=== PATIENT | female | born 1970 | race Two or more races ===

== ENCOUNTER → 2024-10-13 | Outpatient (BNVA) | payer MEDICAID, SELFPAY | END | disposition home or self-care (01) | PROVIDERS: PCP Nurse Practitioner Primary Care; Referring Provider Nurse Practitioner Primary Care; Visit Provider Nurse Practitioner Primary Care | DX: Z00.01 Encounter for general adult medical examination with abnormal findings (principal); E11.9 Type 2 diabetes mellitus without complications; D50.0 Iron deficiency anemia secondary to blood loss (chronic) | CPT/HCPCS: 83036; 85018; 99214 ==

== ENCOUNTER → 2024-11-23 | Outpatient (BNVA) | payer MEDICAID, SELFPAY | END | disposition home or self-care (01) | PROVIDERS: PCP Nurse Practitioner Family; Referring Provider Nurse Practitioner Family; Visit Provider Nurse Practitioner Family | DX: E11.9 Type 2 diabetes mellitus without complications (principal) | CPT/HCPCS: 99213 ==

== ENCOUNTER 2024-12-08 12:59 | Emergency (ER) | payer MEDICAID, SELFPAY ==
[2024-12-08 13:30] VITALS: BP 135/79; PULSE 97; RESP 18; TEMP 37.1; O2SAT 96; BMI 31.6
[2024-12-08 13:51] LABS: Basophils % (Auto) 0 % (0-2.5); Eosinophils % (Auto) 0 % (0-10); Hemoglobin 9.5 g/dL (12.0-16.0); Immature Granulocytes % (Auto) 1 % (0-0); Immature Granulocytes Auto 0.11 Thou/mm3 (0.00-0.00); Lymphocytes # (Auto) 1.6 Thou/mm3 (1.0-4.8); Lymphocytes % (Auto) 17 % (10-50); Mean Corpuscular HGB Conc 28.8 g/dl (31.0-37.0); Mean Corpuscular Hemoglobin 22.9 pg (25.0-35.0); Mean Corpuscular Volume 80 fL (80-100); Monocytes # (Auto) 0.7 Thou/mm3 (0.0-0.8); Monocytes % (Auto) 7 % (0-12); Neutrophils # (Auto) 7.1 Thou/mm3 (1.8-7.7); Neutrophils % (Auto) 74 % (37-80); Nucleated Red Blood Cell # 0.07 Thou/mm3 (0.00-0.00); Nucleated Red Blood Cell % 1 /100 WBC (0); Platelet Count 241 Thou/mm3 (140-440); RDW Standard Deviation 48.5 fL (36.4-46.3); Red Blood Count 4.15 Miln/mm3 (4.00-5.20); White Blood Count 9.6 Thou/mm3 (3.6-11.0)
[2024-12-08 14:00] LABS: Glucose Estimated Average 315 mg/dL (80-131); Hemoglobin A1C 12.6 % Hgb (4.8-6.0)
[2024-12-08 14:11] LABS: Alanine Aminotransferase 110 U/L (10-49); Albumin, Serum 4.6 gm/dL (3.5-5.0); Albumin/Globulin Ratio 1.4 (1.2-2.2); Alkaline Phosphatase 241 U/L (46-116); Anion Gap 9 (7-16); Aspartate Amino Transferase 94 U/L (0-34); BUN/Creatinine Ratio 27 Ratio (12-20); Bilirubin,Total 0.5 mg/dL (0.3-1.2); Blood Urea Nitrogen 16 mg/dL (9-23); Calcium 10.2 mg/dL (8.3-10.6); Calcium (Corrected) 10.2 mg/dL (8.5-10.1); Carbon Dioxide 25.6 mMol/L (20.0-31.0); Chloride 102 mMol/L (98-107); Creatinine (Component) 0.6 mg/dL (0.6-1.3); Globulin 3.4 gm/dL (2.3-3.5); Glucose 289 mg/dL (74-106); Osmolality,Calculated 286 (275-295); Potassium 4.3 mMol/L (3.4-5.1); Sodium 137 mMol/L (136-145); eGFR > 60 See Note
--- NOTE | 2024-12-08 14:31 | PD.EDADULT ---
ED General RME/HPI General Chief complaint: General Adult/Misc Complain Stated complaint: hyperglycemia, sent by pcp for labs taken 2 days Time Seen by Provider: 12/08/24 13:23 Arrival date/time: 12/08/24 12:59 54-year-old female with no complaints at this time presents emergency department today stating that she was told that her blood sugar was high after having labs drawn 2 days ago and was instructed to come to the ER for further evaluation Limitations: no limitations Related Data Home Medications ?Medication ?Instructions ?Recorded ?Confirmed ferrous sulfate 325 mg (65 mg 325 mg PO TID 09/15/24 10/13/24 iron) tablet simvastatin 20 mg tablet 20 mg PO QPM 11/23/24 11/23/24 Previous Rx's ?Medication ?Instructions ?Recorded empagliflozin 25 mg tablet 25 mg PO QAM #90 tabs 02/27/24 (Jardiance) blood sugar diagnostic (Contour #50 ea 06/10/24 Next Test Strips) blood sugar diagnostic (True #100 ea 08/13/24 Metrix Glucose Test Strip) rosuvastatin 20 mg tablet 20 mg PO QDAY #90 tabs 08/13/24 glipizide 5 mg tablet 5 mg PO BID #90 tabs 09/15/24 pantoprazole 40 mg tablet,delayed 40 mg PO QDAY #30 tabs 09/15/24 release pen needle, diabetic 31 gauge x #100 ea 11/23/2401/23 (Comfort EZ Pen [place]) semaglutide 0.25 mg or 0.5 mg (2 0.5 mg (0.374 mL) subcut QWEEK 4 12/08/24 mg/1.5 mL) subcutaneous pen weeks #1.496 mL injector Allergies Allergy/AdvReac Type Severity Reaction Status Date / Time No Known Allergies Allergy Verified 12/08/24 13:01 Review of Systems Review of Systems Systems Reviewed: All systems reviewed, normal except as documented Constitutional Constitutional: Reports system reviewed and no additional complaints, except as documented, Denies fever(s) and Denies headache(s) Eyes Eyes: Reports system reviewed and no additional complaints, except as documented and Denies blurry vision ENT Ears, Nose, Mouth, and Throat: Reports system reviewed and no additional complaints, except as documented, Denies headache(s), Denies nasal congestion and Denies nasal discharge Cardiovascular Cardiovascular: Reports system reviewed and no additional complaints, except as documented, Denies chest pain and Denies dyspnea Respiratory Respiratory: Reports system reviewed and no additional complaints, except as documented, Denies chest congestion, Denies cough and Denies dyspnea Gastrointestinal Gastrointestinal: Reports system reviewed and no additional complaints, except as documented and Denies abdominal pain Integumentary/Breasts Skin/Breast: Reports system reviewed and no additional complaints, except as documented and Denies rash Neurologic Neurologic: Reports system reviewed and no additional complaints, except as documented, Reports as per HPI and Denies headache(s) Past Medical History Past Medical History NEUROLOGIC: Negative Neurological Disorders CARDIAC: Negative Cardiac Disorders ED Exam General Limitations: Present no limitations General appearance: Present alert and in no apparent distress Head Head exam: Present atraumatic, normocephalic and normal inspection Eye Eye exam: Present normal appearance, PERRL and EOMI; Absent conjunctival injection ENT ENT exam: Present normal exam, normal oropharynx and mucous membranes moist Neck Neck exam: Present normal inspection, full ROM and trachea midline Chest Chest inspection: Present normal inspection and symmetric chest wall rise Respiratory Respiratory exam: Present normal lung sounds bilaterally; Absent respiratory distress Cardiovascular Cardiovascular exam: Present regular rate, normal rhythm and normal heart sounds Abdominal Exam Abdominal exam: Present soft and normal bowel sounds; Absent distention, tenderness, guarding, rebound or rigidity Extremities Exam Extremities exam: Present normal inspection and full ROM Back Exam Back exam: Present normal inspection and full ROM; Absent tenderness Neurological Exam Neurological exam: Present alert, oriented X3, CN II-XII intact, normal gait and reflexes normal; Absent motor sensory deficit Psychiatric Psychiatric exam: Present normal affect and normal mood Skin Skin exam: Present warm, dry, intact and normal color Course Quality Measures none Orders Category Date Time Status Bedside Blood Glucose NOW Care 12/08/24 13:25 Completed A1C [Glycohemoglobin w (eAG)] Stat Lab 12/08/24 13:37 Completed CBC Stat Lab 12/08/24 13:37 Completed CMP [Comprehensive Metabolic Panel] Stat Lab 12/08/24 13:37 Completed Vital Signs Vital signs: Vital Signs Temperature 98.7 F 12/08/24 13:30 Pulse Rate 97 12/08/24 13:30 Respiratory Rate 18 12/08/24 13:30 Blood Pressure 135/79 H 12/08/24 13:30 Pulse Oximetry (%) 96 12/08/24 13:30 Oxygen Delivery Method Room Air 12/08/24 13:30 O2 saturation 96% room air within normal limits MDM Patient data External records reviewed:: [facility] previous records Clinical information provided by:: patient Social determinants that could affect healthcare access:: none Patient has the following chronic illnesses:: See history How is presenting disease/condition affected by chronic disease/condition?: caused by Evaluation data The following diagnostics were reviewed and interpreted by me:: lab results Lab and/or radiology exams considered but not ordered:: Labs obtained Interpretation Summary: Reviewed by me Medications Medications considered but not ordered:: No meds Medication administrations:: No meds Consultations Consultation(s) initiated? (list below): No Diagnosis Differential Diagnosis ED Complaint MDM: Hyperglycemia, euglycemia, DKA Most likely diagnosis given after review of the tests above:: Hyperglycemia Admission Indicated Admission indicated?: not indicated Explain why admission is indicated or not indicated:: No criteria Admission Request Was there a request for admission?: No Disposition Plan Disposition Plan: Discharge Discharge Attestation Discharge Attestation: The patient and all family members were given an opportunity to ask questions and understood the discharge instructions. Discharge instructions specifically effects, indications for sooner follow up or return to the emergency department, and the expected course of current diagnosis. Patient condition: Stable Medical Decision Making MDM Narrative MDM Narrative: 54-year-old female with no complaints at this time presents emergency department today stating that she was told that her blood sugar was high after having labs drawn 2 days ago and was instructed to come to the ER for further evaluation Lab work obtained patient is average blood sugar 315 with an A1c of 12.6 Patient bedside blood sugar today is actually less than her average blood sugar which is quite high explained to the patient she must follow-up with PCP in order get her blood sugar better controlled also patient was instructed to change her dietary habits which will also significantly improve her blood sugar Patient reports no chest pain or shortness of breath no headache dizziness or weakness therefore patient be discharged home at this time Patient discharged home in no distress to follow-up with primary care doctor in the next 24 to 48 hours and for any worsening symptoms to return to the ER immediately Differential Diagnosis Differential Diagnosis: Hyperglycemia, euglycemia, DKA Medical Records Medical records reviewed: Yes I reviewed the patient's medical records. Lab Data Lab results reviewed: Yes I reviewed the patient's lab results. 12/08/24 13:37 12/08/24 13:37 Labs: Lab Results 12/08/24 Range/Units 13:37 WBC 9.6 (3.6-11.0) Thou/mm3 RBC 4.15 (4.00-5.20) Miln/mm3 Hgb 9.5 L (12.0-16.0) g/dL Hct 33.0 L (36.0-46.0) % MCV 80 (80-100) fL MCH 22.9 L (25.0-35.0) pg MCHC 28.8 L (31.0-37.0) g/dl RDW Std Deviation 48.5 H (36.4-46.3) fL Plt Count 241 (140-440) Thou/mm3 Neut % (Auto) 74 (37-80) % Lymph % (Auto) 17 (10-50) % [place] % (Auto) 7 (0-12) % Eos % (Auto) 0 (0-10) % Baso % (Auto) 0 (0-2.5) % Neut # (Auto) 7.1 (1.8-7.7) Thou/mm3 Lymph # (Auto) 1.6 (1.0-4.8) Thou/mm3 [place] # (Auto) 0.7 (0.0-0.8) Thou/mm3 Eos # (Auto) 0.0 (0.0-0.5) Thou/mm3 Baso # (Auto) 0.0 (0.0-0.2) Thou/mm3 Immature Gran # (Auto) 0.11 H (0.00-0.00) Thou/mm3 Absolute Nucleated RBC 0.07 H (0.00-0.00) Thou/mm3 Immature Gran % 1 H (0-0) % Nucleated RBC % 1 H (0) /100 WBC Sodium 137 (136-145) mMol/L Potassium 4.3 (3.4-5.1) mMol/L Chloride 102 (98-107) mMol/L Carbon Dioxide 25.6 (20.0-31.0) mMol/L Anion Gap 9 (7-16) BUN 16 (9-23) mg/dL Creatinine 0.6 (0.6-1.3) mg/dL Estim Creat Clear Calc 89.0 (>60) mL/min eGFR > 60 (60 - ) See Note BUN/Creatinine Ratio 27 H (12-20) Ratio Glucose 289 H (74-106) mg/dL Estimated Ave Glu mg/dL 315 H (80-131) mg/dL Hemoglobin A1c 12.6 H (4.8-6.0) % Hgb Calculated Osmolality 286 (275-295) Calcium 10.2 (8.3-10.6) mg/dL Corrected Calcium 10.2 H (8.5-10.1) mg/dL Total Bilirubin 0.5 (0.3-1.2) mg/dL AST 94 H (0-34) U/L ALT 110 H (10-49) U/L Alkaline Phosphatase 241 H (46-116) U/L Total Protein 8.0 (5.7-8.2) gm/dL Albumin 4.6 (3.5-5.0) gm/dL Globulin 3.4 (2.3-3.5) gm/dL Albumin/Globulin Ratio 1.4 (1.2-2.2) Discharge Plan Plan Patient Disposition: HOME (Self Care) Disposition Comment: Stable Prescriptions/Referrals Prescriptions/Med Rec: No Action (DME) True Metrix Glucose Test Strip Strip See Rx Instructions .Route Qty: 100 1RF Rx Instructions: As directed rosuvastatin 20 mg tablet 20 mg PO QDAY Qty: 90 1RF ferrous sulfate 325 mg (65 mg iron) tablet 325 mg PO TID glipizide 5 mg tablet 5 mg PO BID Qty: 90 1RF pantoprazole 40 mg tablet,delayed release (DR/EC) 40 mg PO QDAY Qty: 30 2RF semaglutide 0.25 mg or 0.5 mg(2 mg/1.5 mL) pen injector 0.5 mg subcut QWEEK 28 Days Qty: 1.496 0RF Jardiance 25 mg tablet 25 mg PO QAM Qty: 90 1RF (DME) Contour Next Test Strips Strip See Rx Instructions .Route Qty: 50 0RF Rx Instructions: As directed simvastatin 20 mg tablet 20 mg PO QPM (DME) pen needle, diabetic [Comfort EZ Pen [place]] 31 gauge x 3/16 needle See Rx Instructions .Route Qty: 100 3RF Rx Instructions: Qday Problem List Clinical Impression: Poorly controlled diabetes mellitus, Elevated liver enzymes Patient/Caregiver Discharge Instructions Education Materials: Facts About Diabetes Additional Instructions: Please follow up with your primary care doctor in the next 24-48hrs for any worsening symptoms return here immediately Your liver enzymes are elevated I suspect is secondary to NAFLD Your diabetes is poorly controlled your average blood sugars 315 your A1c level is 12.6 Print Language: Amharic Stand Alone Forms: Roseann Award Info., Patient Portal Info Letter PA/SHOE REPAIRER APPRENTICE Supervising Physician PA/SHOE REPAIRER APPRENTICE Supervising Physician: Dr. Diego
== END 2024-12-08 15:52 | disposition home or self-care (01) ==
LOC: SERX 15:05
PROVIDERS: Nurse Practitioner Primary Care; Emergency Provider Emergency Medicine; PCP Nurse Practitioner Primary Care
DX: E11.65 Type 2 diabetes mellitus with hyperglycemia (principal); R74.8 Abnormal levels of other serum enzymes; Z79.85 Long-term (current) use of injectable non-insulin antidiabetic drugs; Z79.84 Long term (current) use of oral hypoglycemic drugs
CPT/HCPCS: 36415; 80053; 83036; 85025; 99283

== ENCOUNTER → 2024-12-08 | Outpatient (BNVA) | payer MEDICAID, SELFPAY | END | disposition home or self-care (01) | PROVIDERS: PCP Nurse Practitioner Primary Care; Referring Provider Nurse Practitioner Primary Care; Visit Provider Nurse Practitioner Primary Care | DX: R73.9 Hyperglycemia, unspecified (principal) | CPT/HCPCS: 81001; 81025; 99215; Q0091 ==

== ENCOUNTER → 2025-01-05 | Outpatient (BNVA) | payer MEDICAID, SELFPAY | END | disposition home or self-care (01) | PROVIDERS: PCP Nurse Practitioner Primary Care; Referring Provider Nurse Practitioner Primary Care; Visit Provider Nurse Practitioner Primary Care | DX: E11.65 Type 2 diabetes mellitus with hyperglycemia (principal); Z71.2 Person consulting for explanation of examination or test findings | CPT/HCPCS: 99213 ==

== ENCOUNTER 2025-01-18 07:20 | Day surgery (SDC) | payer MEDICAID, SELFPAY ==
[2025-01-17 13:54] VITALS: BMI 29.5
[2025-01-18] VITALS (11 sets, daily range): BP systolic 100–135; BP diastolic 65–88; PULSE 75–118; RESP 13–24; TEMP 36.2–36.9; O2SAT 92–100; BMI 29.7
[2025-01-18] MEDS: SODIUM CHLORIDE 0.9% 500 ML 500 ML 20 ML IV (09:58)
[2025-01-18] MEDS: fentaNYL CIT INJ 50 mCg/ML AMP 2ML (ASD USE ONLY) IV (09:58)
[2025-01-18] MEDS: MIDAZOLAM INJ 1 MG/ML VIAL 2 ML (ASD USE ONLY) 2 MG IV (09:58)
[2025-01-18] MEDS: DiphenhydrAMINE INJ 50 MG/ML VIAL 25 MG IV (09:59)
[2025-01-18] MEDS: PANTOPRAZOLE/NS 80MG IV PREMIX 80 MG/100 ML BAG 400 MG IV (10:15)
== END 2025-01-18 12:00 | disposition home or self-care (01) ==
PROVIDERS: Referring Provider Internal Medicine Gastroenterology; Visit Provider Internal Medicine Gastroenterology
PROC: (CPT 43239; principal; 2025-01-18 12:15)
DX: K74.60 Unspecified cirrhosis of liver (principal); K29.70 Gastritis, unspecified, without bleeding; K25.9 Gastric ulcer, unspecified as acute or chronic, without hemorrhage or perforation; I85.10 Secondary esophageal varices without bleeding; K29.50 Unspecified chronic gastritis without bleeding
CPT/HCPCS: 43244; 43239; 81025; A4649; J1200; J2250; J3010; J3490; J7040

== ENCOUNTER → 2025-01-31 | Outpatient (BNVA) | payer MEDICAID, SELFPAY | END | disposition home or self-care (01) | PROVIDERS: PCP Nurse Practitioner Primary Care; Referring Provider Nurse Practitioner Primary Care; Visit Provider Nurse Practitioner Primary Care | DX: E11.65 Type 2 diabetes mellitus with hyperglycemia (principal); K74.60 Unspecified cirrhosis of liver | CPT/HCPCS: 83036; 99214 ==

== ENCOUNTER 2025-02-22 08:40 | Day surgery (SDC) | payer MEDICAID, SELFPAY ==
[2025-02-21 12:50] LABS: HCG Qualitative,Urine Negative
[2025-02-22] VITALS (10 sets, daily range): BP systolic 103–114; BP diastolic 63–72; PULSE 81–91; RESP 14–20; TEMP 36.6–37.1; O2SAT 92–97; BMI 34.1
--- NOTE | 2025-02-22 13:10 | SUR.PHASEII ---
1222: pt arrived to PACU drowsy but arouses to voice, breathing unlabored, report from Wendi MARTINEZ 1245: pt tolerating ice chips without difficulty swallowing or n/v 1310: pt awake, alert, able to follow commands, breathing unlabored, VS stable, discharge instructions given with family member Megan present using telephone lobster man Patricia ID#[id number] questions answered, pt and family member verbalize understanding, pt able to dress self and ambulate with steady gait to bathroom, pt discharged via wheelchair with all belongings and copies of discharge paperwork.
== END 2025-02-22 13:10 | disposition home or self-care (01) ==
PROVIDERS: PCP Nurse Practitioner Primary Care; Referring Provider Internal Medicine Gastroenterology; Visit Provider Internal Medicine Gastroenterology
PROC: 0DJD8ZZ Inspection of Lower Intestinal Tract, Via Natural or Artificial Opening Endoscopic (ICD-10-PCS; CPT 45378; principal; 2025-02-22 12:30)
DX: K64.9 Unspecified hemorrhoids (principal)
CPT/HCPCS: 45378; 81025; A4217; J1200; J2250; J3010

== ENCOUNTER → 2025-03-03 | Outpatient (BNVA) | payer MEDICAID, SELFPAY | END | disposition home or self-care (01) | PROVIDERS: PCP Nurse Practitioner Primary Care; Referring Provider Nurse Practitioner Primary Care; Visit Provider Nurse Practitioner Primary Care | DX: Z12.31 Encounter for screening mammogram for malignant neoplasm of breast (principal); E11.65 Type 2 diabetes mellitus with hyperglycemia; K74.69 Other cirrhosis of liver | CPT/HCPCS: 83036; 99214 ==

== ENCOUNTER → 2025-03-09 | Outpatient (BNVA) | payer MEDICAID, SELFPAY | END | disposition home or self-care (01) | PROVIDERS: PCP Nurse Practitioner Primary Care; Referring Provider Nurse Practitioner Primary Care; Visit Provider Nurse Practitioner Primary Care | DX: D64.9 Anemia, unspecified (principal); K74.69 Other cirrhosis of liver; K76.0 Fatty (change of) liver, not elsewhere classified | CPT/HCPCS: 99212; G0463 ==

== ENCOUNTER → 2025-03-22 | Outpatient (BNVA) | payer MEDICAID, SELFPAY | END | disposition home or self-care (01) | PROVIDERS: PCP Nurse Practitioner Primary Care; Referring Provider Nurse Practitioner Primary Care; Visit Provider Nurse Practitioner Primary Care | DX: D64.9 Anemia, unspecified (principal); K74.69 Other cirrhosis of liver; K76.0 Fatty (change of) liver, not elsewhere classified | CPT/HCPCS: 99213 ==

== ENCOUNTER → 2025-03-31 | Outpatient (BNVA) | payer MEDICAID, SELFPAY | END | disposition home or self-care (01) | PROVIDERS: PCP Nurse Practitioner Primary Care; Referring Provider Nurse Practitioner Primary Care; Visit Provider Nurse Practitioner Primary Care | DX: E11.8 Type 2 diabetes mellitus with unspecified complications (principal) | CPT/HCPCS: 83036; 99213 ==

== ENCOUNTER → 2025-04-25 | Outpatient (BNVA) | payer MEDICAID, SELFPAY | END | disposition home or self-care (01) | PROVIDERS: PCP Nurse Practitioner Primary Care; Referring Provider Nurse Practitioner Primary Care; Visit Provider Nurse Practitioner Primary Care | DX: E11.65 Type 2 diabetes mellitus with hyperglycemia (principal) | CPT/HCPCS: 99212; G0463 ==

== ENCOUNTER → 2025-05-17 | Outpatient (CLI) | payer MEDICAID, SELFPAY ==
--- NOTE | 2025-05-17 14:30 | XR_ITS ---
Examination: MRI abdomen with intravenous contrast. MRI abdomen without intravenous contrast. Date and time of exam: May 17, 2025 1526 hours, comparison CT abdomen pelvis 07/18/2020 INDICATIONS: Diagnosis cirrhosis, fatty change of the liver not elsewhere classified, intermittent abdominal pain beginning 2019 Technique: Multiple axial, sagittal and coronal sections of the abdomen obtained. Transverse images, TR 6020, TE 107. T1 weighted transverse images, TR 582, TE 9.5. T2-weighted sagittal images, TR 4000, TE 105. T2-weighted sagittal images, TR 4000, TE 5. Coronal images, TR 4210, TE 107. Axial and coronal images are obtained post 20 cc intravenous injection, gadolinium. Findings: Hepatomegaly 23 cm, liver irregular in contour, no focal liver lesions on the precontrast images Postcontrast images demonstrate no abnormal liver lesions No gallstones No gallbladder wall edema No common hepatic or common bile duct stones No pancreatic mass Mild splenomegaly 13.4 cm No hydronephrosis Aorta normal size. No ascites No abdominal lymphadenopathy IMPRESSION: Cirrhosis, hepatomegaly 23 cm, no focal liver lesions Normal gallbladder Normal common hepatic common bile duct Mild splenomegaly 13.4 cm Negative for ascites
== END | disposition home or self-care (01) ==
LOC: SMRI 12:31
PROVIDERS: PCP Nurse Practitioner Primary Care; Referring Provider Nurse Practitioner Primary Care; Visit Provider Nurse Practitioner Primary Care
DX: K74.60 Unspecified cirrhosis of liver (principal); R16.1 Splenomegaly, not elsewhere classified
CPT/HCPCS: 74183; A9579

== ENCOUNTER → 2025-06-03 | Outpatient (BNVA) | payer MEDICAID, SELFPAY | END | disposition home or self-care (01) | PROVIDERS: PCP Nurse Practitioner Primary Care; Referring Provider Nurse Practitioner Primary Care; Visit Provider Nurse Practitioner Primary Care | DX: D64.9 Anemia, unspecified (principal); K74.69 Other cirrhosis of liver; K76.0 Fatty (change of) liver, not elsewhere classified | CPT/HCPCS: 99213 ==

== ENCOUNTER → 2025-07-08 | Outpatient (BNVA) | payer MEDICAID, SELFPAY | END | disposition home or self-care (01) | PROVIDERS: PCP Nurse Practitioner Primary Care; Referring Provider Nurse Practitioner Primary Care; Visit Provider Nurse Practitioner Primary Care | DX: D64.9 Anemia, unspecified (principal); K74.69 Other cirrhosis of liver; E11.9 Type 2 diabetes mellitus without complications; K76.0 Fatty (change of) liver, not elsewhere classified | CPT/HCPCS: 99214 ==

== ENCOUNTER → 2025-07-15 | Outpatient (BNVA) | payer MEDICAID, SELFPAY | END | disposition home or self-care (01) | PROVIDERS: PCP Nurse Practitioner Primary Care; Referring Provider Nurse Practitioner Primary Care; Visit Provider Nurse Practitioner Primary Care | DX: D64.9 Anemia, unspecified (principal); E11.9 Type 2 diabetes mellitus without complications; K76.0 Fatty (change of) liver, not elsewhere classified; Z91.148 Patient's other noncompliance with medication regimen for other reason | CPT/HCPCS: 99213 ==

== ENCOUNTER → 2025-07-28 | Outpatient (BNVA) | payer MEDICAID, SELFPAY | END | disposition home or self-care (01) | PROVIDERS: PCP Nurse Practitioner Family; Referring Provider Nurse Practitioner Family; Visit Provider Nurse Practitioner Family | DX: E11.65 Type 2 diabetes mellitus with hyperglycemia (principal); Z91.199 Patient's noncompliance with other medical treatment and regimen due to unspecified reason | CPT/HCPCS: 99214 ==

== ENCOUNTER → 2025-08-23 | Outpatient (BNVA) | payer MEDICAID, SELFPAY | END | disposition home or self-care (01) | PROVIDERS: PCP Nurse Practitioner Primary Care; Referring Provider Nurse Practitioner Primary Care; Visit Provider Nurse Practitioner Primary Care | DX: E11.65 Type 2 diabetes mellitus with hyperglycemia (principal); K74.69 Other cirrhosis of liver; Z91.199 Patient's noncompliance with other medical treatment and regimen due to unspecified reason; Z79.4 Long term (current) use of insulin | CPT/HCPCS: 82948; 99214 ==

== ENCOUNTER → 2025-09-05 | Outpatient (BNVA) | payer MEDICAID, SELFPAY | END | disposition home or self-care (01) | PROVIDERS: PCP Nurse Practitioner Primary Care; Referring Provider Nurse Practitioner Primary Care; Visit Provider Nurse Practitioner Primary Care | DX: Z12.31 Encounter for screening mammogram for malignant neoplasm of breast (principal) | CPT/HCPCS: 99214 ==

== ENCOUNTER 2025-09-11 09:54 | Inpatient (IN) | payer MEDICAID, SELFPAY ==
[2025-09-11] VITALS (16 sets, daily range): BP systolic 87–102; BP diastolic 49–67; PULSE 83–119; RESP 11–97; TEMP 36.7–37.2; O2SAT 94–99; BMI 30.1
--- NOTE | 2025-09-11 10:10 | PD.EDRME ---
Rapid Medical Screening Exam E Arrival date/time: 09/11/25 09:54 54-year-old female with a history of type 2 diabetes, hyperlipidemia, chronic anemia, fatty liver disease, presents to the emergency room with a chief complaint of vomiting blood x 1 day I have greeted and performed a focused initial assessment of this patient. A comprehensive ED assessment and evaluation of the patient, analysis of all test results, and completion of the medical decision making process will be conducted by additional ED providers. Chief Complaint: GI Bleed Vital signs: Vital Signs Temperature 98.1 F 09/11/25 10:03 Pulse Rate 1 L 09/11/25 10:03 Respiratory Rate 19 09/11/25 10:03 Blood Pressure 92/53 L 09/11/25 10:03 Pulse Oximetry (%) 98 09/11/25 10:03 Oxygen Delivery Method Room Air 09/11/25 10:03 Vital signs reviewed by provider: Yes Exam: Soft nontender abdomen. No tenderness, no guarding no grimacing Clear bilateral lung sounds no wheezing no abnormal breath sounds Clinical Impression: Esophageal varices/upper GI bleed/
--- NOTE | 2025-09-11 10:29 | EDNOTE_ITS ---
<Statement entered by Reina Welch MD - 09/11/25 16:26> I, Reina Welch MD, have reviewed the history, exam, and assessment of the patient. I have evaluated the patient independently and agree with the plan of care documented by [ ]. All diagnostic studies were reviewed and discussed. I confirm the diagnosis as documented by the Resident. I was present during the Medical Decision Making for this patient. The patient's plan of care was created between myself and the Resident and consistent with our discussion of the patient's case. ED GI Bleed RME/HPI General Chief complaint: GI Bleed Stated complaint: VOMITING BLOOD Time Seen by Provider: 09/11/25 10:18 Arrival date/time: 09/11/25 09:54 E / HPI E / HPI Narrative: CC: vomiting blood Patient is a 54 year old female with a past medical history of HLD, diabetes mellitus type 2, insulin depdent 35 units BID and ozempic-previous A1c 12.6 (11/2024) , history of MASH, and Grade II Varcies, history of anemia who is pr esenting to the emergency room via private vechilce with chief complain of bright red blood with vomit. Per patient two episode of hematemesis this morning. Hemetemesis described as bright red and about 1/4 of a cup both times. Patient denied history of alcohol use or drug use. Denied Melena in stool. Denied diarrhea or constipation. Previous colonoscopy noted hemorroids in February 2025 by gastroenterology. Patient denied cough or recent sick contacts. Denied pyrexia. History of ibuprofen use abut 8 months prior for arthritis but has not used since. Patient denied history of ulcers. Previous EGD (01/2025) noted to have varcies grade II likely secondary to MASH/ Fatty Liver . NO Falls. Impression: Esophageal varices/upper GI bleed/ Related Data Previous Rx's ?Medication ?Instructions ?Recorded rosuvastatin 20 mg tablet 20 mg PO QDAY #90 tabs 01/31 glipizide 5 mg tablet See Rx Instructions .Route 0 04/28/25 .COMPLEX #180 tabs ferrous sulfate 325 mg (65 mg 325 mg PO QDAY #30 tabs 07/15/25 iron) tablet,delayed release pantoprazole 40 mg tablet,delayed See Rx Instructions .Route 08/22/25 release .COMPLEX #30 tabs blood-glucose sensor (Dexcom G7 #1 ea 08/23/25 Sensor device) empagliflozin 25 mg tablet 25 mg PO QAM #90 tabs 08/23 (Jardiance) insulin glargine 100 unit/mL (3 30 unit (0.3 mL) subcu t BID #15 mL 08/23/25 mL) subcutaneous pen (Lantus Solostar U-100 Insulin) pen needle, diabetic 31 gauge x #100 ea 08/23/25/ (Comfort EZ Pen [place]) semaglutide 2 mg/dose (8 mg/3 mL) See Rx Instructions .Route 08/23/25 subcutaneous pen injector (Ozempic) .COMPLEX #3 mL Allergies Allergy/AdvReac Type Severity Reaction Status Date / Time No Known Allergies Allergy Verified 09/11/25 09:56 Review of Systems Review of Systems Narrative Review of Systems: General appearance: NO weight change, YES fatigue, YES weakness, NO fever, NO chills, NO night sweats, No cough Skin: NO rash, NO itching, NO sores, NO moles HEENT: NO Trauma, NO nausea, NO vomiting, NO visual changes, NO blurry vision, NO double vision, NO tinnitus, NO vertigo, NO ear discharge, NO rhinorrhea, NO stuffiness, NO sneezing, NO allergy, NO epistaxis. NO Hoarseness, NO sore throat, NO swollen neck. Cardiac: NO Palpitations, NO dyspnea on exertion, NO orthopnea, NO paroxysmal nocturnal dyspnea, NO edema Respiratory: NO Shortness of Breath, NO Wheezing, NO Cough, NO Sputum, NO hemoptysis GI:NO appetite, NO nausea, NO vomiting, no dysphagia, NO changes in bowel frequency, NO stool color, NO diarrhea, NO constipation, YES hemetemesis, YES hemorrhoids, NO melena, NO hematechezia, NO abdominal pain, NO jaundice, GERD Renal: NO frequency, NO hesitancy, NO urgency, NO hematuria, NO nocturia, NO incontinence MSK: NO muscle weakness, NO gout, NO arthritis, NO muscle stiffness Neuro: NO headaches, NO tremors, NO weakness, NO paralysis, NO seizures, NO loss of consciousness, NO numbness. Hem: YES anemia, NO easy bruising/bleeding, NO petechiae, NO purpura Endo: NO heat/cold intolerance, NO excessive sweating, NO polyuria, NO polydipsia, NO polyphagia, NO thyroid problems, YES diabetes Pysch: NO mood, NO anxiety, NO depression ED Exam Narrative Physical exam: General Appearance: Alert & Oriented X3, well-nourished female who is lying in bed in no acute distress HEENT: Skull symmetrical and atraumatic. Conjunctivae pale pink and moist. Pupils equal, round, reactive to light and accommodation (PERRL). External ear without lesion or discharge. Straight, nares patient, mucosa pink, no discharge. No thyroid nodule appreciated. No cervical lymphadenopathy. Cardio: tachy Rate and Rhythm with S1 and S2 heart sounds. No murmurs or extra heart sounds auscultated. No bruits on carotid auscultation. No peripheral edema or cyanosis. Peripheral pulses 3+ Lungs: Symmetric with good expansion. Chest and back non-tender. Breath sounds vesicular without crackles, wheezing or rhonchi Abdomen: Non-tender, Non-distended, Normal Reactive Bowel Sounds Neuro: Alert, cooperative, oriented to person, place, and time. Speech clear. CN grossly intact. Upper motor strength 5/5 and Lower motor strength 5/5. Sensation intact. Course Quality Measures none (Bleeding) Orders Category Date Time Status Bedside Blood Glucose NOW Care 09/11/25 10:28 Active Bedside Blood Glucose NOW Care 09/11/25 13:12 Active EKG (ED ONLY) *Do not use* NOW Care 09/11/25 10:44 Completed NPO NOW Care 09/11/25 10:29 Active Occult Blood,Stool (Nursing) ONCE Care 09/11/25 10:30 Active Transfuse,blood/blood products NOW Care 09/11/25 11:41 Active Consult to Gastroenterology Routine Cons 09/11/25 13:00 Ordered Diet NPO (NOW) Diet 09/11/25 10:29 Active EKG (ED Only) Stat Exams 09/11/25 10:44 Draft Acetaminophen Routine Lab 09/11/25 13:42 Completed Alcohol, Urine Routine Lab 09/11/25 13:14 Ordered Ammonia Routine Lab 09/11/25 12:59 Completed Arterial Blood Gas Routine Lab 09/11/25 14:05 Completed Beta Hydroxybutyrate Routine Lab 09/11/25 13:42 Completed CBC Stat Lab 09/11/25 10:48 Completed CMP [Comprehensive Metabolic Panel] Stat Lab 09/11/25 10:48 Completed Drug Screen,Urine Routine Lab 09/11/25 13:14 Ordered Hgb and Hct Post-Transfusion Routine Lab 09/11/25 13:42 Received Lactic Acid [Lactate (Lactic Acid)] Stat Lab 09/11/25 12:59 Results Lipase Stat Lab 09/11/25 10:48 Completed PT [Prothrombin Time with INR] Stat Lab 09/11/25 10:48 Completed PTT [Partial Thromboplastin Time] Stat Lab 09/11/25 10:48 Completed Procalcitonin Routine Lab 09/11/25 12:59 Completed Salicylate Routine Lab 09/11/25 13:42 Completed Type and Screen Stat Lab 09/11/25 10:48 Results UA, C/S IF [Urinalysis, C/S if Indicated] Routine Lab 09/11/25 13:19 Completed Urine Culture Routine Lab 09/11/25 13:19 Received prbc [Red Blood Cells] Stat Lab 09/11/25 10:48 Results INSULIN LISPRO (AdmeLOG) [HumaLOG] Med 09/11/25 13:12 Discontinued 5 unit SC X1 ONE Ondansetron Odt [Zofran Odt] Med 09/11/25 10:10 Discontinued 4 mg PO X1 ONE Pantoprazole Inj [Protonix Inj] Med 09/11/25 10:15 Discontinued 80 mg IVP X1 ONE Ringers Lactated 1000 ml [Lactated Ringers] 1,000 ml Med 09/11/25 10:15 Discontinued IV 999 mls/hr Ringers Lactated 1000 ml [Lactated Ringers] 1,000 ml Med 09/11/25 11:43 Discontinued IV 999 mls/hr Sodium Chloride 0.9% [Ns] 100 ml Med 09/11/25 10:16 Active Octreotide Acet Inj [SandoSTATIN Inj] 1,000 mcg IV 50 mcg/hr cefTRIAXone/D5w 1gm IV premix [Rocephin/D5w 1gm IV Med 09/11/25 10:16 Active premix] 1 gm in 50 ml IV QDAY Vital Signs Vital signs: Vital Signs Temperature 98.1 F 09/11/25 10:03 Pulse Rate 119 H 09/11/25 10:03 Respiratory Rate 19 09/11/25 10:03 Blood Pressure 92/53 L 09/11/25 10:03 Pulse Oximetry (%) 98 09/11/25 10:03 Oxygen Delivery Method Room Air 09/11/25 10:03 GI Bleed Patient data External records reviewed:: [facility] previous records Clinical information provided by:: patient Social determinants that could affect healthcare access:: none Patient has the following chronic illnesses:: HLD, DM type 2 insulin, GERD, Anemia, MASH, and Varices II, gastritis, and ulcers How is presenting disease/condition affected by chronic disease/condition?: exacerbated by (varices grade II) Evaluation data The following diagnostics were reviewed and interpreted by me:: lab results and EKG tracing(s) Lab and/or radiology exams considered but not ordered:: CBC CMP type and screen Interpretation Summary: acute blood loss anemia hgb 6.3, ordered 2 units of prbcs. Medications / Prescriptions Medications or Prescriptions considered but not ordered:: Protonix 80 mg X 1 Octerotride Ceftriaxone 2 units of prbcs Medication administrations:: Medication Administration History Octreotide Acetate 1,000 mcg/ (Sodium Chloride) 102 mls @ 5.1 mls/hr IV .Q20H ONE; Protocol Stop: 09/12/25 06:15 Last Admin: 09/11/25 10:35 Dose: 50 mcg/hr, 5.1 mls/hr Documented By: EF Ceftriaxone Sodium/Dextrose (Rocephin/D5w 1gm Iv Premix) 1 gm in 50 mls @ 100 mls/hr IV QDAY LUCIAN Stop: 09/18/25 10:15 Last Infusion: 09/11/25 11:08 Dose: Infused Documented By: Admin: 09/11/25 10:34 Dose: 100 mls/hr Documented By: EF Discontinued Medications Lactated Ringer's (Lactated Ringers) 1,000 mls @ 999 mls/hr IV .Q1H1M ONE Stop: 09/11/25 11:15 Last Infusion: 09/11/25 11:37 Dose: Infused Documented By: Admin: 09/11/25 10:34 Dose: 999 mls/hr Documented By: EF Lactated Ringer's (Lactated Ringers) 1,000 mls @ 999 mls/hr IV .Q1H1M ONE Stop: 09/11/25 12:43 Last Infusion: 09/11/25 13:06 Dose: Infused Documented By: Admin: 09/11/25 12:05 Dose: 999 mls/hr Documented By: EF Insulin Human Lispro (Insulin Lispro (Admelog) 1 Unit/0.01 Ml Unit) 5 unit SC X1 ONE Stop: 09/11/25 13:13 Last Admin: 09/11/25 13:38 Dose: Not Given Documented By: MARLYN Non-Admin Reason: Cancelled by Provider Ondansetron HCl (Ondansetron Odt 4 Mg Tabrap) 4 mg PO X1 ONE; Protocol Stop: 09/11/25 10:11 Last Admin: 09/11/25 10:35 Dose: 4 mg Documented By: EF Pantoprazole Sodium (Pantoprazole Inj 40 Mg Vial) 80 mg IVP X1 ONE Stop: 09/11/25 10:16 Last Admin: 09/11/25 10:36 Dose: 80 mg Documented By: EF same as above Consultations Consultation(s) initiated? (list below): Yes Consultation #1 (Physician, Specialty, Details): Dr. Luna Time: 12:50 Consultation #2 (Physician, Specialty, Details): Hospitalist/Dr. Rahman Resident PGY-2, Time: 14:03 Diagnosis GI bleed differential diagnosis: esophageal varices, gastritis and Upper gastrointestinal hemorrhage Most likely diagnosis given after review of the tests above:: Esophageal varices given history of cirrhosis and esophageal varices II Admission Indicated Admission indicated?: indicated Admission Request Was there a request for admission?: Yes Admission Attestation Admission request attestation: Discussed case with Dr. Rahman, PGY-2 from Hospitalist service regarding admission. Discussed patients ED course, exam findings, labs, and radiology results. The Hospitalist agrees to accept the patient for admission. Disposition Plan Disposition Plan: Admit Discharge Plan Plan Patient Disposition: Admit Acute Care w/in Hospital Patient condition on transfer: Stable Prescriptions/Referrals Prescriptions/Med Rec: No Action (DME) Dexcom G7 Sensor Device See Rx Instructions .Route Qty: 1 6RF Rx Instructions: As directed Q10 days (DME) pen needle, diabetic [Comfort EZ Pen [place]] 31 gauge x 3/16 needle See Rx Instructions .Route Qty: 100 3RF Rx Instructions: Qday Ozempic 2 mg/dose (8 mg/3 mL) pen injector See Rx Instructions .ROUTE .COMPLEX Qty: 3 2RF Dose Instruction: INJECT 2MG SUBCUTANEOUSLY ONCE A WEEK AT 9AM Rx Instructions: INJECT 2MG SUBCUTANEOUSLY ONCE A WEEK AT 9AM insulin glargine [Lantus Solostar U-100 Insulin] 100 unit/mL (3 mL) insulin pen 30 unit subcut BID Qty: 15 6RF Jardiance 25 mg tablet 25 mg PO QAM Qty: 90 1RF rosuvastatin 20 mg tablet 20 mg PO QDAY Qty: 90 1RF ferrous sulfate 325 mg (65 mg iron) tablet,delayed release (DR/EC) 325 mg PO QDAY Qty: 30 2RF glipizide 5 mg tablet See Rx Instructions .ROUTE .COMPLEX Qty: 180 0RF Dose Instruction: Take 1 tablet by mouth twice daily Rx Instructions: Take 1 tablet by mouth twice daily pantoprazole 40 mg tablet,delayed release (DR/EC) See Rx Instructions .ROUTE .COMPLEX Qty: 30 0RF Dose Instruction: Take 1 tablet by mouth once daily Rx Instructions: Take 1 tablet by mouth once daily Referrals: Eliza ([facility]),ANNETTE HopperP [Primary Care Provider, Family Practice] - In 1 week Problem List Clinical Impression: Acute upper GI bleed Patient/Caregiver Discharge Instructions Print Language: Maltese Stand Alone Forms: Roseann Award Info., Patient Portal Info Letter
[2025-09-11] MEDS: RINGERS LACTATED 1000 ML 1,000 ML 999 ML IV ×2 (10:34→12:05)
[2025-09-11] MEDS: cefTRIAXone/D5w 1gm IV premix 1 GM/50 ML BAG IV (10:34)
[2025-09-11] MEDS: ONDANSETRON ODT 4 MG TABRAP PO (10:35)
[2025-09-11] MEDS: OCTREOTIDE ACET INJ 1,000 MCG in SODIUM CHLORIDE 0.9% 100 ML 5.1 MCG IV (10:35)
--- NOTE | 2025-09-11 10:44 | EKG_ITS ---
[facility] Test Date: 2025-09-11 Pat Name: MARILU BLOOD Department: Room: - Gender: Female [employer] Finisher: : 1970 Requested By: Reina Zhang Order Number: [id number] Reading MD: Reina Zhang Measurements Intervals [place] Rate: 106 P: 38 MN: 133 QRS: 0 QRSD: 84 T: 32 QT: 355 QTc: 472 Interpretive Statements SINUS TACHYCARDIA POSSIBLE ANTERIOR MYOCARDIAL INFARCTION , PROBABLY OLD [30 ms Q WAVE IN V3/V4, OR R < 0.2 mV IN V4] ABNORMAL RHYTHM ECG Compared to ECG 06/23/2024 18:28:33 Myocardial infarct finding now present Sinus rhythm no longer present /store/S0/[id number].pdf
[2025-09-11 11:07] LABS: Basophils # (Auto) 0.0 Thou/mm3 (0.0-0.2); Basophils % (Auto) 0 % (0-2.5); Eosinophils # (Auto) 0.0 Thou/mm3 (0.0-0.5); Eosinophils % (Auto) 0 % (0-10); Hematocrit 21.8 % (36.0-46.0); Immature Granulocytes Auto 0.37 Thou/mm3 (0.00-0.00); Lymphocytes # (Auto) 2.8 Thou/mm3 (1.0-4.8); Lymphocytes % (Auto) 24 % (10-50); Mean Corpuscular HGB Conc 28.9 g/dl (31.0-37.0); Mean Corpuscular Hemoglobin 26.7 pg (25.0-35.0); Mean Corpuscular Volume 92 fL (80-100); Monocytes # (Auto) 1.2 Thou/mm3 (0.0-0.8); Monocytes % (Auto) 10 % (0-12); Neutrophils # (Auto) 7.4 Thou/mm3 (1.8-7.7); Neutrophils % (Auto) 63 % (37-80); Nucleated Red Blood Cell # 0.14 Thou/mm3 (0.00-0.00); Nucleated Red Blood Cell % 1 /100 WBC (0); Platelet Count 266 Thou/mm3 (140-440); RDW Standard Deviation 67.9 fL (36.4-46.3); Red Blood Count 2.36 Miln/mm3 (4.00-5.20); White Blood Count 11.8 Thou/mm3 (3.6-11.0)
[2025-09-11 11:28] LABS: INR 1.1 (0.9-1.3); Partial Thromboplastin Time 21.4 Seconds (22.0-36.0); Prothrombin Time 12.1 Seconds (9.0-12.2)
[2025-09-11 11:41] LABS: Hemoglobin 6.3 g/dL (12.0-16.0)
[2025-09-11 13:01] LABS: Alanine Aminotransferase 87 U/L (10-49); Albumin, Serum 3.2 gm/dL (3.5-5.0); Albumin/Globulin Ratio 1.6 (1.2-2.2); Alkaline Phosphatase 194 U/L (46-116); Anion Gap 17 (7-16); Aspartate Amino Transferase 54 U/L (0-34); BUN/Creatinine Ratio 82 Ratio (12-20); Bilirubin,Total 0.5 mg/dL (0.3-1.2); Blood Urea Nitrogen 49 mg/dL (9-23); Calcium 8.2 mg/dL (8.3-10.6); Calcium (Corrected) 8.8 mg/dL (8.5-10.1); Carbon Dioxide 17.0 mMol/L (20.0-31.0); Chloride 109 mMol/L (98-107); Creatinine (Component) 0.6 mg/dL (0.6-1.3); Estimated Creatinine Clearance 90.6 mL/min (>60); Globulin 2.0 gm/dL (2.3-3.5); Glucose 378 mg/dL (74-106); Lipase 80 U/L (12-53); Osmolality,Calculated 313 (275-295); Potassium 4.0 mMol/L (3.4-5.1); Sodium 143 mMol/L (136-145); Total Protein 5.2 gm/dL (5.7-8.2); eGFR > 60 See Note
[2025-09-11 13:13] LABS: Lactate (Lactic Acid) 2.9 mMol/L (0.4-2.0)
[2025-09-11 13:35] LABS: Collection Type, Urine Clean Catch
[2025-09-11 13:47] LABS: Bacteria,Urine 1+; Bilirubin,Urine Negative (Negative); Blood,Urine Negative (Negative); Clarity,Urine Clear (Clear/Hazy); Color,Urine Lt-Yellow (Lt Yel-Yel); Glucose, Urine 4+ (Negative); Ketones,Urine Trace (Negative); Leukocyte Esterase,Urine Positive (Negative); Nitrite,Urine Positive (Negative); PH,Urine 6.0 (5.0-7.0); Protein,Urine Negative (Neg - Trace); RBC,Urine 1 /hpf (0-3); Specific Gravity,Urine 1.023 (1.001-1.035); Squamous Epithelial Cell,Urine 3 /hpf (0-5); Urobilinogen,Urine Negative mg/dL (0.0-1.0); WBC,Urine 10 /hpf (0-5)
[2025-09-11 13:49] LABS: Culture Indicated,Urine Yes
[2025-09-11 13:59] LABS: Procalcitonin 0.95 ng/ml (0.0-0.49)
[2025-09-11 14:11] LABS: Beta Hydroxybutyrate 0.8 mmol/L (<0.6)
[2025-09-11 14:12] LABS: Base Excess -2 (-3-3); HCO3 22 mEq/L (20-26); Inspired Oxygen, FIO2 21 %; O2 Saturation 96 % (91-98); PCO2 34 mmHg (32.0-48.0); PO2 74 mmHg (83-108); pH, Arterial 7.42 (7.35-7.45)
[2025-09-11 14:13] LABS: Ammonia 43 uMol/L (11-32)
[2025-09-11 14:15] LABS: Allen Test Performed/OK; Puncture Site Right Radial
--- NOTE | 2025-09-11 14:16 | ESHP_ITS ---
<Statement entered by Marvin Rahman MD - 09/11/25 16:31> Ms. Bello is a 54-year-old woman with past medical history of insulin- dependent type 2 diabetes and liver cirrhosis with hx grade 2 varices status post banding presented to the ED after having 2 episodes of hematemesis. Patient states she has been feeling weak and fatigued for a few days followed with hematemesis. Patient's hemoglobin is found to be 6.3 and 2 units of PRBC is ordered for transfusion. Patient denied any previous history of similar episodes. Patient has an appointment with a validation software facilitator at [place] coming up. Patient states she has gotten to 2 EGD which showed esophageal varices and nonbleeding gastric ulcer and a colonoscopy in the last 10 months. Consult for GI is placed, patient is started on octreotide drip and Protonix 40 mg twice daily. Per patient's daughter at bedside patient is compliant with her insulin regularly however on admission her blood sugars are 378. Will start degludec 10 units at bedtime and will continue with insulin sliding scale. Will repeat A1c for morning labs. Patient was seen and examined by me personally. I have directly supervised and reviewed documentation by the team resident and agree with its findings. ------- Plan of care was discussed with the attending, Dr. Josiah Rahman, PGY-2 Documentation for date of: 09/11/25 HPI History of Present Illness History of present illness: Ms. Latasha Fontanez is a 54-year-old woman with past medical history of hyperlipidemia, poorly controlled type 2 diabetes with a last recorded A1c of 10.1, MASLD cirrhosis and grade 2 varices status post banding in January 2025. Patient states that she was not feeling well for the past 3 days and endorses feeling quite dizzy. This morning at around 9 AM, patient reports having bloody nonbilious emesis, and subsequent coffee-ground emesis. Patient states that she was reluctant to come to the hospital given she helps care for a number of her grandchildren. Patient states that she has never been told about the varices. She takes apap for arthritis pain, but previoulsy was taking nsaids. she reports compliance with her medications including insulin 30 units bid. She had EGD in 01/2025 which found grade 2 varices that were banded and gastritis She had colonoscopy in 02/2025 where she was noted to have hemorrhoids and poor prep which required repeat colonoscopy in 6 months. ROS Endorses: 2 episodes of hematemesis, coffee-ground emesis, nausea, dizziness for 3 days, fatigue, malaise Denies: Melena, dysuria, vision changes Family Hx:Non contributory ALL: NKDA surgical hx, none Social history: Patient lives at home and is independent of her adls and iadls, ambulates with walker. ED course VSS: Afebrile, tachycardic to 120s, hypotensive with systolic 92/53 satting well on room air Labs notable for hemoglobin of 6.3 (baseline 9.5), leukocytosis of 11.8, elevated ammonia levels 43, procalcitonin mildly elevated 0.95, lipase 80,BUN 49, transaminitis AST 54, ALT 87, alk phos 194, UA with nitrites positive and leukocyte esterase positive with 1+ bacteria, pending cultures, APAP levels within normal limits and salicylates normal Tx - LR - Octreotide drip 50 mcg/hr - protonix 80 mg IV - 2 units PRBC ordered, transfusing first unit - Dr. Luna, GI consulted. Exam Vital Signs Temp Pulse Resp BP Pulse Ox O2 Del Method 98.4 F 105 H 16 98/55 L 97 Room Air 09/11/25 14:06 09/11/25 14:06 09/11/25 14:06 09/11/25 14:06 09/11/25 14:06 09/11/25 14:06 Narrative Exam GENERAL: no acute distress, AAO x3, comfortably laying in bed HEENT: Head AT/ NC. Mucous membranes moist. PERRL. NECK: Supple, no lymphadenopathy, no carotid bruits. CARDIOVASCULAR: RRR. Normal S1/S2, No m/r/g. No pitting edema of bilateral LEs. some lymphedema RESPIRATORY: CTAB. No wheezing, rhonchi, crackles. GASTROINTESTINAL: Abdomen soft, obese, non tender no palpable masses. Bowel sounds present, no rebound, no guarding MUSCULOSKELETAL:? No cyanosis or edema, no visible joint swelling. NEUROLOGICAL: CN II-XII grossly intact. No focal deficits. Sensation intact, symmetric. PSYCHIATRIC: Awake and alert, not agitated, normal mood and affect. SKIN: No obvious rashes, no jaundice, some lower extremity contusions, and shiny skin on anterior shins. with 1cm wounds. Results: Labs 09/11/25 10:48 09/11/25 10:48 Labs: Short CBC 09/11/25 Range/Units 10:48 WBC 11.8 H (3.6-11.0) Thou/mm3 Hgb 6.3 L* (12.0-16.0) g/dL Hct 21.8 L* (36.0-46.0) % Plt Count 266 (140-440) Thou/mm3 BMP 09/11/25 10:48 Sodium 143 Potassium 4.0 Chloride 109 H Carbon Dioxide 17.0 L BUN 49 H Creatinine 0.6 Glucose 378 H Calcium 8.2 L Liver Function 09/11/25 Range/Units 10:48 Total Bilirubin 0.5 (0.3-1.2) mg/dL AST 54 H (0-34) U/L ALT 87 H (10-49) U/L Alkaline Phosphatase 194 H (46-116) U/L Albumin 3.2 L (3.5-5.0) gm/dL Urine 09/11/25 Range/Units 13:19 Urine Color Lt-Yellow (Lt Yel-Yel) Urine Clarity Clear (Clear/Hazy) Urine pH 6.0 (5.0-7.0) Ur Specific [place] 1.023 (1.001-1.035) Urine Protein Negative (Neg - Trace) Urine Glucose (UA) 4+ A (Negative) ABG Interpretation ABG results: 09/11/25 14:05 ABG pH 7.42 ABG pCO2 34 ABG pO2 74 L ABG HCO3 22 ABG O2 Saturation 96 ABG Base Excess -2 Quality Measures Quality Measures VTE prophylaxis (scds, pt has bleed ) Medications Home Medications and Allergies Allergies Allergy/AdvReac Type Severity Reaction Status Date / Time No Known Allergies Allergy Verified 09/11/25 09:56 Visit Medications Octreotide Acetate 1,000 mcg/ (Sodium Chloride) 102 mls @ 5.1 mls/hr IV .Q20H ONE; Protocol Stop: 09/12/25 06:15 Last Admin: 09/11/25 10:35 Dose: 50 mcg/hr, 5.1 mls/hr Ceftriaxone Sodium/Dextrose (Rocephin/D5w 1gm Iv Premix) 1 gm in 50 mls @ 100 mls/hr IV QDAY [facility] Stop: 09/18/25 10:15 Last Infusion: 09/11/25 11:08 Dose: Infused Discontinued Medications Lactated Ringer's (Lactated Ringers) 1,000 mls @ 999 mls/hr IV .Q1H1M ONE Stop: 09/11/25 11:15 Last Infusion: 09/11/25 11:37 Dose: Infused Lactated Ringer's (Lactated Ringers) 1,000 mls @ 999 mls/hr IV .Q1H1M ONE Stop: 09/11/25 12:43 Last Infusion: 09/11/25 13:06 Dose: Infused Insulin Human Lispro (Insulin Lispro (Admelog) 1 Unit/0.01 Ml Unit) 5 unit SC X1 ONE Stop: 09/11/25 13:13 Last Admin: 09/11/25 13:38 Dose: Not Given Ondansetron HCl (Ondansetron Odt 4 Mg Tabrap) 4 mg PO X1 ONE; Protocol Stop: 09/11/25 10:11 Last Admin: 09/11/25 10:35 Dose: 4 mg Pantoprazole Sodium (Pantoprazole Inj 40 Mg Vial) 80 mg IVP X1 ONE Stop: 09/11/25 10:16 Last Admin: 09/11/25 10:36 Dose: 80 mg Assessment & Plan Plan Ms Bello is a 54 year old woman with history of hyperlipidemia, poorly controlled type 2 diabetes with a last recorded A1c of 10.1, MASLD cirrhosis and grade 2 varices status post banding in January 2025. who presented to the ED with 2 episodes of hematemis, now npo pending egd, and trasfusing 2 units prbc for acute symptomatic blood loss anemia. 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 patient endorses bloody and coffee ground, nonbilleous emesis 2x this morning, she denies melena. suspect elevated lactic acid is 2/2, leukocytosis is likely reactive rather than infectious. She is tachycardic and hypotensive on admission. BUN is elevated which is also suggestive GI bleed. there is low level of suspician for pancreatitis given she has no abdominal tenderness and lipase is only mildly elevated. She has upcoming appt with liver specialist at [facility] in November 2025 Plan: - GI consulted, appreciate recs - NPO pending EGD - Transfuse PRBC 2 units, f/u post transfusion H and H - Ceftriaxone 1 g IV qd for sbp ppx - Octreotide drip 50/hr - Protonix 40 mg IV BID - zofran 4 mg PRN IVP - LR 85 cc/hr (2L) - Avoid NSAIDs - Trend lactic until normalized - hep panel pending - consider lactulose if hyperammonemia persists or becomes encephalopathic. #Anion gap metabolic acidosis likely 2/2 Lactic acidosis 2/2 upper GI bleed, see above Plan - IV fluids LR 85 cc/hr #Cystitis vs UTI pt denies LUTS, however UA notable for +nitrites and + leuk esterase with 1+ bacteria Plan: - f/u Ucx - cont CTX 1 gm IV qd for sbp ppx (see above) #Insulin Depended T2DM: Poorly controlled Home meds, Glargine 30 units BID, empagliflozin 25 mg qd, glipizide 5 mg qd, semaglutide 2mg/dose qweek - pending A1c, Last clinic note, with A1c 10.1% - Step 3 ISS - Degludec 10units qd sc #Arthritis - holding APAP 650 PRN for pain given npo - morphine 1.5 iv q4hr prn for moderate to severe pain #HLD - hold resouvastatin 20 mg qhs Dispo: tele Diet: NPO pending egd Bowel Reg: n/a VTE ppx: scd with robert mata GI ppx: octreotide drip and protonix 40 BID Code status: FULL Plan discussed with my attending Dr. Rahman and my senior resident Dr. Osorio Gutierrez MD PGY1 Attending Provider Attestation/Addendum I Marcelino Rahman MD reviewed the note and agree with the resident's assessment & plan with modifications/additions/exceptions as below. I have personally reviewed labs, imaging, home meds/prior records, examined the patient, formulated and discussed management plan with the IM team. A 54-year-old female with history of DM, HLD, [place] cirrhosis presented to ED with hematemesis noted to have acute blood loss anemia with hemoglobin 6.3. Patient was tachycardic, borderline hypotension with significant anion gap metabolic acidosis. Also noted to have elevated lactate and ammonia levels. LFTs has been increased with significantly elevated procalcitonin. Ketones are elevated indicating ketoacidosis partly diabetic in nature. Will transfuse 2 unit PRBCs, loaded with octreotide and Protonix and continue octreotide and Protonix infusion, start on Rocephin 1 g daily for prophylaxis, will obtain UA, CXR, EKG. Lactic acidosis is likely secondary to acute blood loss anemia with systemic hypoperfusion. Repeat lactate until normalized will consult GI for EGD. Keep patient NPO. Will also start on insulin infusion for possible DKA.
[2025-09-11 14:43] LABS: Acetaminophen < 2.0 mcg/mL (10.0-20.0); Salicylate < 3.0 mg/dL
[2025-09-11 15:08] LABS: Path Review Blood Smear Sent to Pathologist
[2025-09-11 16:10] LABS: Reflex Lactate? Y
[2025-09-11] MEDS: RINGERS LACTATED 1000 ML 1,000 ML 85 ML IV (16:19)
[2025-09-11 16:34] LABS: Lactic Acid, 3 HR 1.4 mMol/L (0.4-2.0)
--- NOTE | 2025-09-11 17:18 | PD.IMCONS ---
HPI Data of Consult Requesting Physician: Marcelino Rahman MD Primary Care Provider: JOSE J Sandoval Consult Narrative Reason for consult: Hematemesis History of present illness: 54 years old female who has history of Kendall cirrhosis presented with 2 episodes of hematemesis She does have a history of chronic liver disease secondary to Kendall and had an upper endoscopy done as follows 01/18/2025 upper endoscopy showed a shallow gastric ulcer David class III and banding of the esophageal varices done by Dr. Mar 02/22/2025 colonoscopy showed hemorrhoids too much stool in the colon and repeat colonoscopy was recommended but no gross lesions seen cc:: cc: Marcelino Rahman MD Review of Systems Review of Systems Systems Reviewed: All systems reviewed, normal except as documented Past Medical History Surgical History OTHER SURGICAL HX: As in the history of present illness Meds Home Medications and Allergies Allergies Allergy/AdvReac Type Severity Reaction Status Date / Time No Known Allergies Allergy Verified 09/11/25 09:56 Exam Vital Signs Temp Pulse Resp BP Pulse Ox O2 Del Method 98.1 F 102 H 12 96/59 L 95 Room Air 09/11/25 16:59 09/11/25 16:59 09/11/25 16:59 09/11/25 16:59 09/11/25 16:59 09/11/25 16:59 Constitutional Comments: Alert oriented Routine Respiratory Exam Comments: Normal to auscultation Routine Abdominal Exam Comments: Positive bowel sounds Results Labs 09/11/25 10:48 09/11/25 10:48 Labs: Short CBC 09/11/25 Range/Units 10:48 WBC 11.8 H (3.6-11.0) Thou/mm3 Hgb 6.3 L* (12.0-16.0) g/dL Hct 21.8 L* (36.0-46.0) % Plt Count 266 (140-440) Thou/mm3 BMP 09/11/25 10:48 Sodium 143 Potassium 4.0 Chloride 109 H Carbon Dioxide 17.0 L BUN 49 H Creatinine 0.6 Glucose 378 H Calcium 8.2 L Liver Function 09/11/25 Range/Units 10:48 Total Bilirubin 0.5 (0.3-1.2) mg/dL AST 54 H (0-34) U/L ALT 87 H (10-49) U/L Alkaline Phosphatase 194 H (46-116) U/L Albumin 3.2 L (3.5-5.0) gm/dL Urine 09/11/25 Range/Units 13:19 Urine Color Lt-Yellow (Lt Yel-Yel) Urine Clarity Clear (Clear/Hazy) Urine pH 6.0 (5.0-7.0) Ur Specific [place] 1.023 (1.001-1.035) Urine Protein Negative (Neg - Trace) Urine Glucose (UA) 4+ A (Negative) ABG Interpretation ABG results: 09/11/25 14:05 ABG pH 7.42 ABG pCO2 34 ABG pO2 74 L ABG HCO3 22 ABG O2 Saturation 96 ABG Base Excess -2 Assessment and Plan Additional Assessment & Plan Additional Plan: Hematemesis in the setting of KENDALL with history of band ligation of the esophageal varices 01/18/2025 Plan Serial CBC and transfuse as the hemoglobin is very low at 6.3 and 21.8 although platelet count is reasonably good at 266 and pro time INR is 1.1 Consent obtained for fiberoptic colonoscopy with possible biopsy possible therapeutic intervention under intravenous moderate sedation scheduled for tomorrow Octreotide infusion at 50 mcg/h IV Protonix Will follow the patient Thank you very much for the opportunity to participate in the care of this patient
[2025-09-11 19:05] LABS: Lactate (Lactic Acid) 1.4 mMol/L (0.4-2.0)
[2025-09-11 20:22] LABS: Hepatitis A Antibody IgM Non Reactive (Non React); Hepatitis B Core Antibody IgM Non Reactive (Non React); Hepatitis B Surface Antigen Non Reactive (Non React); Hepatitis C Antibody Non Reactive (Non React)
[2025-09-12] VITALS (18 sets, daily range): BP systolic 91–150; BP diastolic 56–90; PULSE 81–99; RESP 11–94; TEMP 36.4–37.8; O2SAT 93–100; BMI 30.5
[2025-09-12 01:08] LABS: Hematocrit 25.9 % (36.0-46.0)
[2025-09-12 01:11] LABS: Hemoglobin 8.1 g/dL (12.0-16.0)
[2025-09-12] MEDS: RINGERS LACTATED 1000 ML 1,000 ML 85 ML IV (04:42)
[2025-09-12 05:13] LABS: Basophils # (Auto) 0.0 Thou/mm3 (0.0-0.2); Basophils % (Auto) 1 % (0-2.5); Eosinophils # (Auto) 0.1 Thou/mm3 (0.0-0.5); Eosinophils % (Auto) 1 % (0-10); Hematocrit 24.8 % (36.0-46.0); Immature Granulocytes Auto 0.24 Thou/mm3 (0.00-0.00); Lymphocytes # (Auto) 2.9 Thou/mm3 (1.0-4.8); Lymphocytes % (Auto) 34 % (10-50); Mean Corpuscular HGB Conc 31.5 g/dl (31.0-37.0); Mean Corpuscular Hemoglobin 28.8 pg (25.0-35.0); Mean Corpuscular Volume 92 fL (80-100); Monocytes # (Auto) 0.9 Thou/mm3 (0.0-0.8); Monocytes % (Auto) 11 % (0-12); Neutrophils # (Auto) 4.4 Thou/mm3 (1.8-7.7); Neutrophils % (Auto) 51 % (37-80); Nucleated Red Blood Cell # 0.17 Thou/mm3 (0.00-0.00); Nucleated Red Blood Cell % 2 /100 WBC (0); Platelet Count 170 Thou/mm3 (140-440); RDW Standard Deviation 58.1 fL (36.4-46.3); Red Blood Count 2.71 Miln/mm3 (4.00-5.20); White Blood Count 8.6 Thou/mm3 (3.6-11.0)
[2025-09-12 05:14] LABS: Hemoglobin 7.8 g/dL (12.0-16.0)
[2025-09-12 05:29] LABS: Glucose Estimated Average 160 mg/dL (80-131); Hemoglobin A1C 7.2 % Hgb (4.8-6.0)
[2025-09-12 06:05] LABS: Alanine Aminotransferase 90 U/L (10-49); Albumin, Serum 3.0 gm/dL (3.5-5.0); Albumin/Globulin Ratio 1.6 (1.2-2.2); Alkaline Phosphatase 133 U/L (46-116); Anion Gap 8 (7-16); Aspartate Amino Transferase 112 U/L (0-34); BUN/Creatinine Ratio 70 Ratio (12-20); Bilirubin,Total 0.4 mg/dL (0.3-1.2); Blood Urea Nitrogen 28 mg/dL (9-23); Calcium 8.3 mg/dL (8.3-10.6); Calcium (Corrected) 9.1 mg/dL (8.5-10.1); Carbon Dioxide 26.2 mMol/L (20.0-31.0); Chloride 113 mMol/L (98-107); Creatinine (Component) 0.4 mg/dL (0.6-1.3); Estimated Creatinine Clearance 136.0 mL/min (>60); Globulin 1.9 gm/dL (2.3-3.5); Glucose 160 mg/dL (74-106); Magnesium 1.8 mg/dL (1.6-2.6); Osmolality,Calculated 300 (275-295); Phosphorous 2.9 mg/dL (2.4-5.1); Potassium 4.3 mMol/L (3.4-5.1); Sodium 147 mMol/L (136-145); Total Protein 4.9 gm/dL (5.7-8.2); eGFR > 60 See Note
--- NOTE | 2025-09-12 07:46 | ESPR_ITS ---
<Statement entered by Marvin Rahman MD - 09/12/25 18:34> Pt is seen at bedside, no new complaints. Pt is scheduled for EGD today, will continue octreotide and pantoprazole drip. Patient was seen and examined by me personally. I have directly supervised and reviewed documentation by the team resident and agree with its findings. ------- Plan of care was discussed with the attending, Dr. Rosa Rahman, PGY-2 Documentation for date of: 09/12/25 Subjective Subjective Interval history: Ms. Bello is a 54 year old woman who has hx of grade 2 varices banded by Isabela in 01/2025. She presented with hemoptysis and acute symptomatic anemia, NPO pending EGD this morning she reports slight headache and knee arthritic pain, given APAP BG 150, on 10 units Degludec Exam Vital Signs Temp Pulse Resp BP Pulse Ox O2 Del Method 99.1 F 85 18 91/56 L 96 Room Air 09/12/25 06:12 09/12/25 06:12 09/12/25 06:12 09/12/25 06:12 09/12/25 06:12 09/12/25 06:12 Narrative Exam GENERAL: no acute distress, AAO x3, comfortably laying in bed HEENT: Head AT/ NC. Mucous membranes moist. PERRL. NECK: Supple, no lymphadenopathy, no carotid bruits. CARDIOVASCULAR: RRR. Normal S1/S2, No m/r/g. No pitting edema of bilateral LEs. some lymphedema RESPIRATORY: CTAB. No wheezing, rhonchi, crackles. GASTROINTESTINAL: Abdomen soft, obese, non tender no palpable masses. Bowel sounds present, no rebound, no guarding MUSCULOSKELETAL:? No cyanosis or edema, no visible joint swelling. NEUROLOGICAL: CN II-XII grossly intact. No focal deficits. Sensation intact, symmetric. PSYCHIATRIC: Awake and alert, not agitated, normal mood and affect. SKIN: No obvious rashes, no jaundice, some lower extremity contusions, and shiny skin on anterior shins. with 1cm wounds. Objective Labs 09/15/25 05:22 09/15/25 05:22 Labs: Laboratory Results - last 24 hr 09/11/25 09/11/25 09/11/25 10:48 12:59 13:19 WBC 11.8 H RBC 2.36 L Hgb 6.3 L* Hct 21.8 L* MCV 92 MCH 26.7 MCHC 28.9 L RDW Std Deviation 67.9 H Plt Count 266 Neut % (Auto) 63 Lymph % (Auto) 24 [place] % (Auto) 10 Eos % (Auto) 0 Baso % (Auto) 0 Neut # (Auto) 7.4 Lymph # (Auto) 2.8 [place] # (Auto) 1.2 H Eos # (Auto) 0.0 Baso # (Auto) 0.0 Immature Gran # (Auto) 0.37 H Absolute Nucleated RBC 0.14 H Immature Gran % 3 H Nucleated RBC % 1 H Smear Path Review Sent to Pathologist PT 12.1 INR 1.1 APTT 21.4 L Puncture Site ABG pH ABG pCO2 ABG pO2 ABG HCO3 ABG O2 Saturation ABG Base Excess FiO2 Sodium 143 Potassium 4.0 Chloride 109 H Carbon Dioxide 17.0 L Anion Gap 17 H BUN 49 H Creatinine 0.6 Estim Creat Clear Calc 90.6 eGFR > 60 BUN/Creatinine Ratio 82 H Glucose [address] Glu mg/dL Hemoglobin A1c Calculated Osmolality 313 H Lactic Acid 2.9 H Calcium 8.2 L Corrected Calcium 8.8 Phosphorus Magnesium Total Bilirubin 0.5 AST 54 H ALT 87 H Alkaline Phosphatase 194 H Ammonia 43 H Total Protein 5.2 L Albumin 3.2 L Globulin 2.0 L Albumin/Globulin Ratio 1.6 Lipase 80 H Beta-Hydroxybutyrate/Acetoacetate Procalcitonin 0.95 H Ur Collection Type Clean Catch Urine Color Lt-Yellow Urine Clarity Clear Urine pH 6.0 Ur Specific [place] 1.023 Urine Protein Negative Urine Glucose (UA) 4+ A Urine Ketones Trace Urine Blood Negative Urine Nitrite Positive Urine Bilirubin Negative Urine Urobilinogen (Auto) Negative Ur Leukocyte Esterase Positive Urine RBC 1 Urine WBC 10 H Ur Squamous Epith Cells 3 Urine Bacteria 1+ A Ur Culture Indicated? Yes Salicylates Acetaminophen Hepatitis A IgM Ab Non Reactive Hep Bs Antigen Non Reactive Hep B Core IgM Ab Non Reactive Hepatitis C Antibody Non Reactive Blood Type B Positive Antibody Screen NEGATIVE Crossmatch See Detail Blood Bank Wristband ID Yes 09/11/25 09/11/25 09/11/25 13:42 14:05 16:18 WBC RBC Hgb Hct MCV MCH MCHC RDW Std Deviation Plt Count Neut % (Auto) Lymph % (Auto) [place] % (Auto) Eos % (Auto) Baso % (Auto) Neut # (Auto) Lymph # (Auto) [place] # (Auto) Eos # (Auto) Baso # (Auto) Immature Gran # (Auto) Absolute Nucleated RBC Immature Gran % Nucleated RBC % Smear Path Review PT INR APTT Puncture Site Right Radial ABG pH 7.42 ABG pCO2 34 ABG pO2 74 L ABG HCO3 22 ABG O2 Saturation 96 ABG Base Excess -2 FiO2 21 Sodium Potassium Chloride Carbon Dioxide Anion Gap BUN Creatinine Estim Creat Clear Calc eGFR BUN/Creatinine Ratio Glucose Estimated Ave Glu mg/dL Hemoglobin A1c Calculated Osmolality Lactic Acid 1.4 Calcium Corrected Calcium Phosphorus Magnesium Total Bilirubin AST ALT Alkaline Phosphatase Ammonia Total Protein Albumin Globulin Albumin/Globulin Ratio Lipase Beta-Hydroxybutyrate/Acetoacetate 0.8 H Procalcitonin Ur Collection Type Urine Color Urine Clarity Urine pH Ur Specific [place] Urine Protein Urine Glucose (UA) Urine Ketones Urine Blood Urine Nitrite Urine Bilirubin Urine Urobilinogen (Auto) Ur Leukocyte Esterase Urine RBC Urine WBC Ur Squamous Epith Cells Urine Bacteria Ur Culture Indicated? Salicylates < 3.0 Acetaminophen < 2.0 L Hepatitis A IgM Ab Hep Bs Antigen Hep B Core IgM Ab Hepatitis C Antibody Blood Type Antibody Screen Crossmatch Blood Bank Wristband ID 09/11/25 09/12/25 09/12/25 19:00 00:39 04:47 WBC 8.6 RBC 2.71 L Hgb 8.1 L D 7.8 L Hct 25.9 L 24.8 L MCV 92 MCH 28.8 MCHC 31.5 RDW Std Deviation 58.1 H Plt Count 170 D Neut % (Auto) 51 Lymph % (Auto) 34 [place] % (Auto) 11 Eos % (Auto) 1 Baso % (Auto) 1 Neut # (Auto) 4.4 Lymph # (Auto) 2.9 [place] # (Auto) 0.9 H Eos # (Auto) 0.1 Baso # (Auto) 0.0 Immature Gran # (Auto) 0.24 H Absolute Nucleated RBC 0.17 H Immature Gran % 3 H Nucleated RBC % 2 H Smear Path Review PT INR APTT Puncture Site ABG pH ABG pCO2 ABG pO2 ABG HCO3 ABG O2 Saturation ABG Base Excess FiO2 Sodium 147 H Potassium 4.3 Chloride 113 H Carbon Dioxide 26.2 Anion Gap 8 BUN 28 H Creatinine 0.4 L Estim Creat Clear Calc 136.0 eGFR > 60 BUN/Creatinine Ratio 70 H Glucose [address] Glu mg/dL 160 H Hemoglobin A1c 7.2 H Calculated Osmolality 300 H Lactic Acid 1.4 Calcium 8.3 Corrected Calcium 9.1 Phosphorus 2.9 Magnesium 1.8 Total Bilirubin 0.4 AST 112 H ALT 90 H Alkaline Phosphatase 133 H D Ammonia Total Protein 4.9 L Albumin 3.0 L Globulin 1.9 L Albumin/Globulin Ratio 1.6 Lipase Beta-Hydroxybutyrate/Acetoacetate Procalcitonin Ur Collection Type Urine Color Urine Clarity Urine pH Ur Specific [place] Urine Protein Urine Glucose (UA) Urine Ketones Urine Blood Urine Nitrite Urine Bilirubin Urine Urobilinogen (Auto) Ur Leukocyte Esterase Urine RBC Urine WBC Ur Squamous Epith Cells Urine Bacteria Ur Culture Indicated? Salicylates Acetaminophen Hepatitis A IgM Ab Hep Bs Antigen Hep B Core IgM Ab Hepatitis C Antibody Blood Type Antibody Screen Crossmatch Blood Bank Wristband ID ABG Interpretation ABG results: 09/11/25 14:05 ABG pH 7.42 ABG pCO2 34 ABG pO2 74 L ABG HCO3 22 ABG O2 Saturation 96 ABG Base Excess -2 Quality Measures Quality Measures VTE prophylaxis (scds, pt has bleed ) Assessment & Plan Assessment Current Active Medications: Generic Name Dose Route Start Last Admin Trade Name Freq PRN Reason Stop Dose Admin Dextrose 25 ml 09/11/25 15:09 Dextrose 50%-Water Inj 50 Ml Syringe IV 10/11/25 15:08 Q15MIN PRN BG 50-70 responsive npo pt Dextrose 50 ml 09/11/25 15:09 Dextrose 50%-Water Inj 50 Ml Syringe IV 10/11/25 15:08 Q15MIN PRN BG <50 OR BG <70 & pt unresponsive Glucagon 1 mg 09/11/25 15:09 Glucagon Inj 1 Mg Vial IM Q15MIN PRN BG <70, and no IV access Ceftriaxone Sodium/Dextrose 1 gm in 50 mls @ 100 mls/hr 09/11/25 10:16 09/11/25 11:08 Rocephin/D5w 1gm Iv Premix IV 09/18/25 10:15 Infused QDAY LUCIAN Infusion Lactated Ringer's 1,000 mls @ 85 mls/hr 09/11/25 15:15 09/12/25 04:42 Lactated Ringers IV 09/12/25 14:46 85 mls/hr .[id number] LUCIAN Administration Magnesium Sulfate 4 gm in 50 mls @ 12.5 mls/hr 09/12/25 07:40 Magnesium Sulfate Ivpb IV 09/12/25 11:39 X1 ONE Insulin Degludec 10 unit 09/12/25 09:00 Insulin Degludec 5 Unit/0.05 Ml (Per 5 Units) SC 10/12/25 08:59 QDAY LUCIAN Insulin Human Lispro 0 unit 09/11/25 18:00 09/12/25 05:53 Insulin Lispro (Admelog) 1 Unit/0.01 Ml Unit SC 10/11/25 17:59 Not Given Q6HR LUCIAN Protocol Morphine Sulfate 1.5 mg 09/11/25 16:23 Morphine Sulf Inj 4 Mg/Ml Vial IVP 09/16/25 16:22 Q4HR PRN moderate pain 4-8 Ondansetron HCl 4 mg 09/11/25 15:39 Ondansetron Inj 2 Mg/Ml Inj 2 Ml IVP 10/11/25 15:38 Q6HR PRN NAUSEA OR VOMITING Protocol Pantoprazole Sodium 40 mg 09/11/25 21:00 09/11/25 21:09 Pantoprazole Inj 40 Mg Vial IVP 10/11/25 20:59 40 mg BID LUCIAN Administration Plan Ms Bello is a 54 year old woman with history of hyperlipidemia, poorly controlled type 2 diabetes with a last recorded A1c of 10.1, MASLD cirrhosis and grade 2 varices status post banding in January 2025. who presented to the ED with 2 episodes of hematemis, now npo pending egd, s/p 2 units prbc transfusion will continue trending h and h q6hr. 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 patient endorses bloody and coffee ground, nonbilleous emesis 2x this morning, she denies melena. suspect elevated lactic acid is 2/2, leukocytosis is likely reactive rather than infectious. She is tachycardic and hypotensive on admission. BUN is elevated which is also suggestive GI bleed. there is low level of suspician for pancreatitis given she has no abdominal tenderness and lipase is only mildly elevated. She has upcoming appt with liver specialist at [place] in November 2025 hep panel negative Hgb 8.1 post transfusion, will ctm Plan: - GI consulted, appreciate recs - NPO pending EGD - hgb stable post transfusion 2 units PRBC, bumped from 6.8 on admission to 8.1, stable at 7.8 - Ceftriaxone 1 g IV qd for sbp ppx - Octreotide drip 50/hr - Protonix 40 mg IV BID - zofran 4 mg PRN IVP - LR 85 cc/hr (2L) - Avoid NSAIDs - consider lactulose if hyperammonemia persists or becomes encephalopathic. #Cystitis vs UTI pt denies LUTS, however UA notable for +nitrites and + leuk esterase with 1+ bacteria Plan: - f/u Ucx pending - cont CTX 1 gm IV qd for sbp ppx (see above) #Anion gap metabolic acidosis- Resolved likely 2/2 Lactic acidosis 2/2 upper GI bleed, see above [place] 1.4 from 2.9 on admission Plan - IV fluids LR 85 cc/hr #Insulin Depended T2DM: well controlled Home meds, Glargine 30 units BID, empagliflozin 25 mg qd, glipizide 5 mg qd, semaglutide 2mg/dose qweek - 7.2 A1c - Step 3 ISS - Degludec 10units qd sc #Arthritis - holding APAP 650 PRN for pain given npo - morphine 1.5 iv q4hr prn for moderate to severe pain #HLD - hold resouvastatin 20 mg qhs Dispo: tele Diet: NPO pending egd Bowel Reg: n/a VTE ppx: scd with robert mata GI ppx: octreotide drip and protonix 40 BID Code status: FULL Plan discussed with my attending Dr. Lee and my senior resident Dr. Osorio Gutierrez MD PGY1 Attending Provider Attestation/Addendum Breanna Rivera, DO, attest that I was physically present for the martinez portions of the service and evaluated the patient with the resident and I reviewed and discussed the case with the resident and agree with the resident's findings and plans of care as documented above
[2025-09-12] MEDS: cefTRIAXone/D5w 1gm IV premix 1 GM/50 ML BAG IV (08:53)
[2025-09-12] MEDS: Magnesium Sulfate 4 GM Ivpb 4 GM/50 ML BAG IV (08:53)
[2025-09-12] MEDS: ACETAMINOPHEN 325 MG TABLET 650 MG PO (10:35)
[2025-09-12] MEDS: OCTREOTIDE ACET INJ 1,000 MCG in SODIUM CHLORIDE 0.9% 100 ML 5.1 MCG IV (10:59)
[2025-09-12 12:16] LABS: Hematocrit 25.8 % (36.0-46.0)
[2025-09-12 12:32] LABS: Hemoglobin 7.9 g/dL (12.0-16.0)
[2025-09-12 15:29] LABS: Alcohol, Urine Negative (Negative); Amphetamine/Methamp Scrn,U Negative (Negative); Barbiturate Screen,Urine Negative (Negative); Benzodiazepines Screen,Urine Negative (Negative); Benzoylecgonine Screen, Ur Negative (Negative); Fentanyl Screen,Urine Negative (Negative); Opiate Screen,Urine Negative (Negative); THC Screen,Urine Negative (Negative)
[2025-09-12] MEDS: INSULIN LISPRO (AdmeLOG) 1 UNIT/0.01 ML UNIT SC (17:44)
[2025-09-12 18:56] LABS: Hematocrit 27.0 % (36.0-46.0)
[2025-09-12 19:03] LABS: Hemoglobin 8.3 g/dL (12.0-16.0)
[2025-09-12] MEDS: MORPHINE SULF INJ 4 MG/ML VIAL 1.5 MG IVP (21:05)
[2025-09-13] VITALS (11 sets, daily range): BP systolic 92–168; BP diastolic 60–76; PULSE 75–100; RESP 12–88; TEMP 36.7–37.9; O2SAT 92–99; BMI 30.5
[2025-09-13] MEDS: INSULIN LISPRO (AdmeLOG) 1 UNIT/0.01 ML UNIT SC ×5 (00:06→20:07)
[2025-09-13 05:19] LABS: Basophils # (Auto) 0.0 Thou/mm3 (0.0-0.2); Basophils % (Auto) 0 % (0-2.5); Eosinophils # (Auto) 0.1 Thou/mm3 (0.0-0.5); Eosinophils % (Auto) 1 % (0-10); Hematocrit 24.8 % (36.0-46.0); Immature Granulocytes Auto 0.14 Thou/mm3 (0.00-0.00); Lymphocytes # (Auto) 3.1 Thou/mm3 (1.0-4.8); Lymphocytes % (Auto) 38 % (10-50); Mean Corpuscular HGB Conc 31.0 g/dl (31.0-37.0); Mean Corpuscular Hemoglobin 28.7 pg (25.0-35.0); Mean Corpuscular Volume 93 fL (80-100); Monocytes # (Auto) 1.0 Thou/mm3 (0.0-0.8); Monocytes % (Auto) 12 % (0-12); Neutrophils # (Auto) 3.9 Thou/mm3 (1.8-7.7); Neutrophils % (Auto) 47 % (37-80); Nucleated Red Blood Cell # 0.13 Thou/mm3 (0.00-0.00); Nucleated Red Blood Cell % 2 /100 WBC (0); Platelet Count 187 Thou/mm3 (140-440); RDW Standard Deviation 59.3 fL (36.4-46.3); Red Blood Count 2.68 Miln/mm3 (4.00-5.20); White Blood Count 8.2 Thou/mm3 (3.6-11.0)
[2025-09-13 05:22] LABS: Hemoglobin 7.7 g/dL (12.0-16.0)
[2025-09-13] MEDS: ACETAMINOPHEN 325 MG TABLET 650 MG PO ×2 (05:30→19:20)
[2025-09-13] MEDS: OCTREOTIDE ACET INJ 1,000 MCG in SODIUM CHLORIDE 0.9% 100 ML 5.1 MCG IV (05:38)
[2025-09-13 05:42] LABS: Alanine Aminotransferase 84 U/L (10-49); Albumin, Serum 3.1 gm/dL (3.5-5.0); Albumin/Globulin Ratio 1.5 (1.2-2.2); Alkaline Phosphatase 115 U/L (46-116); Anion Gap 10 (7-16); Aspartate Amino Transferase 83 U/L (0-34); BUN/Creatinine Ratio 28 Ratio (12-20); Bilirubin,Total 0.4 mg/dL (0.3-1.2); Blood Urea Nitrogen 11 mg/dL (9-23); Calcium 8.2 mg/dL (8.3-10.6); Calcium (Corrected) 8.9 mg/dL (8.5-10.1); Carbon Dioxide 25.2 mMol/L (20.0-31.0); Chloride 106 mMol/L (98-107); Creatinine (Component) 0.4 mg/dL (0.6-1.3); Estimated Creatinine Clearance 137.1 mL/min (>60); Globulin 2.1 gm/dL (2.3-3.5); Glucose 165 mg/dL (74-106); Magnesium 1.8 mg/dL (1.6-2.6); Osmolality,Calculated 284 (275-295); Phosphorous 3.0 mg/dL (2.4-5.1); Potassium 3.5 mMol/L (3.4-5.1); Sodium 141 mMol/L (136-145); Total Protein 5.2 gm/dL (5.7-8.2); eGFR > 60 See Note
--- NOTE | 2025-09-13 07:47 | ESPR_ITS ---
<Statement entered by Marvin Rahman MD - 09/13/25 18:09> Patient is seen at bedside does not have any new complaints denies any episodes of hematemesis. Patient underwent EGD last night which showed grade 3 esophageal varices[address] GI specialist Dr. Luna has recommended to continue octreotide drip until September 16 which will complete total 5 days. Will anticipate patient's discharge then. Will continue to monitor blood glucose closely and uptitrate insulin if needed. For now we will continue degludec 10 units daily with a sliding scale. Patient had elevated blood pressure we will add Coreg 3.125 twice daily and continue to monitor blood pressure. Patient was seen and examined by me personally. I have directly supervised and reviewed documentation by the team resident and agree with its findings. with the following exceptions/and additional findings. ------- Plan of care was discussed with the attending, Dr. Rosa Rahman, PGY-2 Documentation for date of: 09/13/25 Subjective Subjective Interval history: no acute events overnight. she was found to have grade 3 esophogeal varices on EGD which were banded will have total of 5 days of octreotide. (09/11-09/15) given coreg for better bp control in setting of varices. tolerating clears and full liquid, will advance as tolerated. Exam Vital Signs Temp Pulse Resp BP Pulse Ox O2 Del Method O2 Flow Rate 99.7 F 84 17 105/63 94 L Room Air 2 09/13/25 04:00 09/13/25 04:00 09/13/25 04:00 09/13/25 04:00 09/13/25 04:00 09/13/25 04:00 09/13/25 01:08 Narrative Exam GENERAL: no acute distress, AAO x3, comfortably laying in bed HEENT: Head AT/ NC. Mucous membranes moist. PERRL. NECK: Supple, no lymphadenopathy, no carotid bruits. CARDIOVASCULAR: RRR. Normal S1/S2, No m/r/g. No pitting edema of bilateral LEs. some lymphedema RESPIRATORY: CTAB. No wheezing, rhonchi, crackles. GASTROINTESTINAL: Abdomen soft, obese, non tender no palpable masses. Bowel sounds present, no rebound, no guarding MUSCULOSKELETAL:? No cyanosis or edema, no visible joint swelling. NEUROLOGICAL: CN II-XII grossly intact. No focal deficits. Sensation intact, symmetric. PSYCHIATRIC: Awake and alert, not agitated, normal mood and affect. SKIN: No obvious rashes, no jaundice, some lower extremity contusions, and shiny skin on anterior shins. with 1cm wounds. Objective Labs 09/14/25 05:27 09/14/25 05:27 Labs: Laboratory Results - last 24 hr 09/12/25 09/12/25 09/12/25 12:03 12:55 17:40 WBC RBC Hgb 7.9 L 8.3 L Hct 25.8 L 27.0 L MCV MCH MCHC RDW Std Deviation Plt Count Neut % (Auto) Lymph % (Auto) [place] % (Auto) Eos % (Auto) Baso % (Auto) Neut # (Auto) Lymph # (Auto) [place] # (Auto) Eos # (Auto) Baso # (Auto) Immature Gran # (Auto) Absolute Nucleated RBC Immature Gran % Nucleated RBC % Sodium Potassium Chloride Carbon Dioxide Anion Gap BUN Creatinine Estim Creat Clear Calc eGFR BUN/Creatinine Ratio Glucose Calculated Osmolality Calcium Corrected Calcium Phosphorus Magnesium Total Bilirubin AST ALT Alkaline Phosphatase Total Protein Albumin Globulin Albumin/Globulin Ratio Urine Opiates Screen Negative Urine Fentanyl Screen Negative Ur Barbiturates Screen Negative U Amphetamin/Meth Scrn Negative U Benzodiazepines Scrn Negative U Cocaine Metab Screen Negative U Marijuana (THC) Screen Negative Urine Alcohol Negative 09/13/25 04:44 WBC 8.2 RBC 2.68 L Hgb 7.7 L Hct 24.8 L MCV 93 MCH 28.7 MCHC 31.0 RDW Std Deviation 59.3 H Plt Count 187 Neut % (Auto) 47 Lymph % (Auto) 38 [place] % (Auto) 12 Eos % (Auto) 1 Baso % (Auto) 0 Neut # (Auto) 3.9 Lymph # (Auto) 3.1 [place] # (Auto) 1.0 H Eos # (Auto) 0.1 Baso # (Auto) 0.0 Immature Gran # (Auto) 0.14 H Absolute Nucleated RBC 0.13 H Immature Gran % 2 H Nucleated RBC % 2 H Sodium 141 Potassium 3.5 D Chloride 106 Carbon Dioxide 25.2 Anion Gap 10 BUN 11 Creatinine 0.4 L Estim Creat Clear Calc 137.1 eGFR > 60 BUN/Creatinine Ratio 28 H Glucose 165 H Calculated Osmolality 284 Calcium 8.2 L Corrected Calcium 8.9 Phosphorus 3.0 Magnesium 1.8 Total Bilirubin 0.4 AST 83 H ALT 84 H Alkaline Phosphatase 115 Total Protein 5.2 L Albumin 3.1 L Globulin 2.1 L Albumin/Globulin Ratio 1.5 Urine Opiates Screen Urine Fentanyl Screen Ur Barbiturates Screen U Amphetamin/Meth Scrn U Benzodiazepines Scrn U Cocaine Metab Screen U Marijuana (THC) Screen Urine Alcohol ABG Interpretation ABG results: 09/11/25 14:05 ABG pH 7.42 ABG pCO2 34 ABG pO2 74 L ABG HCO3 22 ABG O2 Saturation 96 ABG Base Excess -2 Quality Measures Quality Measures VTE prophylaxis (scds, pt has bleed ) Assessment & Plan Assessment Current Active Medications: Generic Name Dose Route Start Last Admin Trade Name Freq PRN Reason Stop Dose Admin Acetaminophen 650 mg 09/13/25 04:44 09/13/25 05:30 Acetaminophen 325 Mg Tablet PO 10/13/25 04:43 650 mg Q6HR PRN Administration fever 100.4 or pain 1-3 Dextrose 25 ml 09/11/25 15:09 Dextrose 50%-Water Inj 50 Ml Syringe IV 10/11/25 15:08 Q15MIN PRN BG 50-70 responsive npo pt Dextrose 50 ml 09/11/25 15:09 Dextrose 50%-Water Inj 50 Ml Syringe IV 10/11/25 15:08 Q15MIN PRN BG <50 OR BG <70 & pt unresponsive Glucagon 1 mg 09/11/25 15:09 Glucagon Inj 1 Mg Vial IM Q15MIN PRN BG <70, and no IV access Ceftriaxone Sodium/Dextrose 1 gm in 50 mls @ 100 mls/hr 09/11/25 10:16 09/12/25 08:53 Rocephin/D5w 1gm Iv Premix IV 09/18/25 10:15 100 mls/hr QDAY LUCIAN Administration Octreotide Acetate 1,000 mcg/ 102 mls @ 5.1 mls/hr 09/12/25 10:05 09/13/25 05:38 Sodium Chloride IV 09/17/25 10:05 50 mcg/hr .Q20H LUCIAN 5.1 mls/hr Protocol Administration 50 MCG/HR Magnesium Sulfate 4 gm in 50 mls @ 12.5 mls/hr 09/13/25 07:45 Magnesium Sulfate Ivpb IV 09/13/25 11:44 X1 ONE Insulin Degludec 10 unit 09/12/25 09:00 09/12/25 09:07 Insulin Degludec 5 Unit/0.05 Ml (Per 5 Units) SC 10/12/25 08:59 Not Given QDAY LUCIAN Insulin Human Lispro 0 unit 09/11/25 18:00 09/13/25 05:38 Insulin Lispro (Admelog) 1 Unit/0.01 Ml Unit SC 10/11/25 17:59 3 unit Q6HR LUCIAN Administration Protocol Morphine Sulfate 1.5 mg 09/11/25 16:23 09/12/25 21:05 Morphine Sulf Inj 4 Mg/Ml Vial IVP 09/16/25 16:22 1.5 mg Q4HR PRN Administration moderate pain 4-8 Ondansetron HCl 4 mg 09/11/25 15:39 Ondansetron Inj 2 Mg/Ml Inj 2 Ml IVP 10/11/25 15:38 Q6HR PRN NAUSEA OR VOMITING Protocol Pantoprazole Sodium 40 mg 09/11/25 21:00 09/12/25 20:52 Pantoprazole Inj 40 Mg Vial IVP 10/11/25 20:59 40 mg BID LUCIAN Administration Potassium Chloride 40 meq 09/13/25 07:45 Potassium Chloride 20 Meq Tabcr PO 09/13/25 07:46 X1 ONE Plan Ms Bello is a 54 year old woman with history of hyperlipidemia, poorly controlled type 2 diabetes with a last recorded A1c of 10.1, MASLD cirrhosis and grade 2 varices status post banding in January 2025. who presented to the ED with 2 episodes of hematemis, s/p egd with grade three varices found s/p banding. continue with 2 more days of octreotide and advance diet as tolerated. 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 patient endorses bloody and coffee ground, nonbilleous emesis 2x this morning, she denies melena. suspect elevated lactic acid is 2/2, leukocytosis is likely reactive rather than infectious. She is tachycardic and hypotensive on admission. BUN is elevated which is also suggestive GI bleed. there is low level of suspician for pancreatitis given she has no abdominal tenderness and lipase is only mildly elevated. She has upcoming appt with liver specialist at [place] in November 2025 hep panel negative CTM h and h EGD with grade 3 varices and erythematous stomach mucosa. Plan: - GI consulted, appreciate recs - Full liquid diet, advance diet as tolerated - Ceftriaxone 1 g IV qd for sbp ppx - Octreotide drip 50/hr 09/11-09/15 - Protonix 40 mg IV BID - zofran 4 mg PRN IVP - LR 85 cc/hr - Avoid NSAIDs #Cystitis vs UTI suspected pt denies LUTS, however UA notable for +nitrites and + leuk esterase with 1+ bacteria Plan: - Urine cultures contaminated, multiple rebecca - cont CTX 1 gm IV qd for sbp ppx (see above) #Anion gap metabolic acidosis- Resolved likely 2/2 Lactic acidosis 2/2 upper GI bleed, see above [place] 1.4 from 2.9 on admission Plan - IV fluids LR 85 cc/hr #Insulin Depended T2DM: well controlled Home meds, Glargine 30 units BID, empagliflozin 25 mg qd, glipizide 5 mg qd, semaglutide 2mg/dose qweek - 7.2 A1c - Step 3 ISS - Degludec 10units qd sc #Arthritis - APAP 650 PRN for pain #HLD - hold resouvastatin 20 mg qhs #HTN - start coreg 3.125 bid given c/f elevated pressures in setting of varices Dispo: tele, continues on octreotide drip for total of 5 day course Diet: full liquid advance as tolerated. Bowel Reg: n/a VTE ppx: scd with robert mata GI ppx: octreotide drip and protonix 40 BID Code status: FULL Plan discussed with my attending Dr. Lee and my senior resident Dr. Osorio Gutierrez MD PGY1 Attending Provider Attestation/Addendum IBreanna, DO, attest that I was physically present for the martinez portions of the service and evaluated the patient with the resident and I reviewed and discussed the case with the resident and agree with the resident's findings and plans of care as documented above Patient seen and evaluated this AM. She states that she is doing well. Will start on carvedilol 3.125mg PO BID due to grade 3 varices and erythematous stomach mucosa found on EGD. She will need to remain on octreotide drip for a total of 5 days until 09/16. She has no acute complaints at this time and denies any abdominal pain. No further episodes of nausea or vomiting. Tolerating clear liquid diet
[2025-09-13] MEDS: Magnesium Sulfate 4 GM Ivpb 4 GM/50 ML BAG IV (09:22)
[2025-09-13] MEDS: cefTRIAXone/D5w 1gm IV premix 1 GM/50 ML BAG IV (09:22)
[2025-09-13] MEDS: INSULIN DEGLUDEC 5 UNIT/0.05 ML (PER 5 UNITS) 10 UNIT SC (09:23)
--- NOTE | 2025-09-13 14:39 | PC.SS ---
Patient is alert/oriented. Patient was able to verify demographics. Patient is Armenian speaking only. Manager Pediatric present. Patient states she resides with her daughter, Gabrielle. Patient is independent with ADLs. Patient uses a walker as needed. Patient states she's independent with ADL's. Patient follows with Robby Kay NP @ [facility]. Last appt was 3 weeks ago. Pharmacy; [facility]. Family provides transportation assistance to appointments. Patient is currently on a drip and will be off and ready for discharge on the . Discharge plan is to return home. Alt medical decision maker: aGbrielle Gracia, daughter,
--- NOTE | 2025-09-13 18:47 | ESPR_ITS ---
Documentation for date of: 09/13/25 Subjective Subjective Interval history: Hemoglobin hematocrit 7.7 and 24.8 Status post upper endoscopy with band ligation of the esophageal varices in total 3 bands were reported Exam Vital Signs Temp Pulse Resp BP Pulse Ox O2 Del Method O2 Flow Rate 98.5 F 77 18 105/63 95 Room Air 1 09/13/25 16:00 09/13/25 17:34 09/13/25 16:00 09/13/25 17:34 09/13/25 16:00 09/13/25 16:00 09/13/25 09:00 Objective Labs 09/13/25 04:44 09/13/25 04:44 Labs: Laboratory Results - last 24 hr 09/12/25 09/13/25 17:40 04:44 WBC 8.2 RBC 2.68 L Hgb 8.3 L 7.7 L Hct 27.0 L 24.8 L MCV 93 MCH 28.7 MCHC 31.0 RDW Std Deviation 59.3 H Plt Count 187 Neut % (Auto) 47 Lymph % (Auto) 38 [place] % (Auto) 12 Eos % (Auto) 1 Baso % (Auto) 0 Neut # (Auto) 3.9 Lymph # (Auto) 3.1 [place] # (Auto) 1.0 H Eos # (Auto) 0.1 Baso # (Auto) 0.0 Immature Gran # (Auto) 0.14 H Absolute Nucleated RBC 0.13 H Immature Gran % 2 H Nucleated RBC % 2 H Sodium 141 Potassium 3.5 D Chloride 106 Carbon Dioxide 25.2 Anion Gap 10 BUN 11 Creatinine 0.4 L Estim Creat Clear Calc 137.1 eGFR > 60 BUN/Creatinine Ratio 28 H Glucose 165 H Calculated Osmolality 284 Calcium 8.2 L Corrected Calcium 8.9 Phosphorus 3.0 Magnesium 1.8 Total Bilirubin 0.4 AST 83 H ALT 84 H Alkaline Phosphatase 115 Total Protein 5.2 L Albumin 3.1 L Globulin 2.1 L Albumin/Globulin Ratio 1.5 Impressions Impression: Esophageal varices bleeding requiring band ligation Patient clearly had evidence of esophageal variceal bleeding with stigmata of recent bleed with palma red spots Hypertensive portal gastropathy with mucosal oozing of blood Continue octreotide for total of 5 days Advance diet as tolerated ABG Interpretation ABG results: 09/11/25 14:05 ABG pH 7.42 ABG pCO2 34 ABG pO2 74 L ABG HCO3 22 ABG O2 Saturation 96 ABG Base Excess -2 Assessment & Plan A&P Narrative Hematemesis in the setting of SALVADOR with history of band ligation of the esophageal varices 01/18/2025 Plan Serial CBC and transfuse as the hemoglobin is very low at 6.3 and 21.8 although platelet count is reasonably good at 266 and pro time INR is 1.1 Consent obtained for fiberoptic colonoscopy with possible biopsy possible therapeutic intervention under intravenous moderate sedation scheduled for tomorrow Octreotide infusion at 50 mcg/h IV Protonix Will follow the patient Thank you very much for the opportunity to participate in the care of this patient Time Spent With Patient Time: Total time spent is greater than 50% in coordination of care (as documented) at patient's floor/unit and/or counseling patient:
--- NOTE | 2025-09-13 20:48 | PC.NURSE ---
O2 SATS AT 83% ON ROOM AIR. UPON ENTERING ROOM, PT WITH EYES CLOSED, RESP EVEN, UNLABORED. PT PLACED ON 1L NC. O2 SATS INCREASED TO 96%. NO HISTORY OF O2 USE AT HOME/CPAP/DEBI.
[2025-09-14] VITALS (10 sets, daily range): BP systolic 91–113; BP diastolic 54–63; PULSE 71–95; RESP 14–93; TEMP 36.7–37.8; O2SAT 91–97; BMI 29.8
[2025-09-14] MEDS: OCTREOTIDE ACET INJ 1,000 MCG in SODIUM CHLORIDE 0.9% 100 ML 5.1 MCG IV ×2 (02:27→23:48)
[2025-09-14 06:23] LABS: Basophils # (Auto) 0.0 Thou/mm3 (0.0-0.2); Basophils % (Auto) 0 % (0-2.5); Eosinophils # (Auto) 0.1 Thou/mm3 (0.0-0.5); Eosinophils % (Auto) 1 % (0-10); Hematocrit 24.2 % (36.0-46.0); Immature Granulocytes Auto 0.09 Thou/mm3 (0.00-0.00); Lymphocytes # (Auto) 2.1 Thou/mm3 (1.0-4.8); Lymphocytes % (Auto) 31 % (10-50); Mean Corpuscular HGB Conc 31.0 g/dl (31.0-37.0); Mean Corpuscular Hemoglobin 28.5 pg (25.0-35.0); Mean Corpuscular Volume 92 fL (80-100); Monocytes # (Auto) 0.7 Thou/mm3 (0.0-0.8); Monocytes % (Auto) 10 % (0-12); Neutrophils # (Auto) 3.7 Thou/mm3 (1.8-7.7); Neutrophils % (Auto) 56 % (37-80); Nucleated Red Blood Cell # 0.03 Thou/mm3 (0.00-0.00); Nucleated Red Blood Cell % 1 /100 WBC (0); Platelet Count 185 Thou/mm3 (140-440); RDW Standard Deviation 59.2 fL (36.4-46.3); Red Blood Count 2.63 Miln/mm3 (4.00-5.20); White Blood Count 6.6 Thou/mm3 (3.6-11.0)
[2025-09-14 06:42] LABS: Alanine Aminotransferase 64 U/L (10-49); Albumin, Serum 3.2 gm/dL (3.5-5.0); Albumin/Globulin Ratio 1.6 (1.2-2.2); Alkaline Phosphatase 136 U/L (46-116); Anion Gap 8 (7-16); Aspartate Amino Transferase 58 U/L (0-34); BUN/Creatinine Ratio 17 Ratio (12-20); Bilirubin,Total 0.6 mg/dL (0.3-1.2); Blood Urea Nitrogen 5 mg/dL (9-23); Calcium 8.3 mg/dL (8.3-10.6); Calcium (Corrected) 8.9 mg/dL (8.5-10.1); Carbon Dioxide 25.7 mMol/L (20.0-31.0); Chloride 104 mMol/L (98-107); Creatinine (Component) 0.3 mg/dL (0.6-1.3); Estimated Creatinine Clearance 180.7 mL/min (>60); Globulin 2.0 gm/dL (2.3-3.5); Glucose 196 mg/dL (74-106); Magnesium 1.6 mg/dL (1.6-2.6); Osmolality,Calculated 277 (275-295); Phosphorous 2.8 mg/dL (2.4-5.1); Potassium 3.8 mMol/L (3.4-5.1); Sodium 138 mMol/L (136-145); Total Protein 5.2 gm/dL (5.7-8.2); eGFR > 60 See Note
[2025-09-14 07:25] LABS: Hemoglobin 7.5 g/dL (12.0-16.0)
[2025-09-14] MEDS: INSULIN LISPRO (AdmeLOG) 1 UNIT/0.01 ML UNIT SC ×4 (08:09→20:20)
[2025-09-14] MEDS: INSULIN DEGLUDEC 5 UNIT/0.05 ML (PER 5 UNITS) 10 UNIT SC (08:10)
[2025-09-14] MEDS: cefTRIAXone/D5w 1gm IV premix 1 GM/50 ML BAG IV (08:10)
--- NOTE | 2025-09-14 10:47 | PC.SS ---
SS follow up note; Patient is on Octreotide drip. Patient will discharge home when medically cleared.
--- NOTE | 2025-09-14 14:10 | ESPR_ITS ---
Documentation for date of: 09/14/25 Subjective - Hospitalist Subjective Interval history: Patient seen and eval this a.m. She states that she is feeling well. She was able to tolerate diet, but reports mild nausea today. She denies any abdominal pain, fevers, chills, vomiting, diarrhea otherwise patient has not had a bowel movement for 2 days. She remains on octreotide drip at this time. She denies any shortness of breath or chest pain otherwise. Exam Vital Signs Temp Pulse Resp BP Pulse Ox O2 Del Method O2 Flow Rate 99.1 F 84 18 113/63 91 L Room Air 2 09/14/25 12:00 09/14/25 12:00 09/14/25 12:00 09/14/25 12:00 09/14/25 12:00 09/14/25 12:00 09/14/25 08:00 Narrative Gen: No acute distress HEENT: NCAT, PERRLOU, Sclera anicteric, conjunctiva noninjected, oral mucosa moist without erythema Neck: Supple, full range of motion, no LAD CV: RRR, no murmurs, rubs or gallops Resp: CTAB/L, no wheezing, rhonchi or rales GI: abdomen soft, bowel sounds noted, no tenderness to palpation, no guarding or rebound tenderness, no organomegaly Skin: clean, dry, no rashes, lesions or ecchymosis Ext: no clubbing, cyanosis, or edema Neuro: A&O x3, CN II- XII intact b/l, no focal neurological deficits Objective - Hospitalist Labs Diagram: 09/14/25 05:27 09/14/25 05:27 Labs: Laboratory Results - last 24 hr 09/14/25 05:27 WBC 6.6 RBC 2.63 L Hgb 7.5 L Hct 24.2 L MCV 92 MCH 28.5 MCHC 31.0 RDW Std Deviation 59.2 H Plt Count 185 Neut % (Auto) 56 Lymph % (Auto) 31 [place] % (Auto) 10 Eos % (Auto) 1 Baso % (Auto) 0 Neut # (Auto) 3.7 Lymph # (Auto) 2.1 [place] # (Auto) 0.7 Eos # (Auto) 0.1 Baso # (Auto) 0.0 Immature Gran # (Auto) 0.09 H Absolute Nucleated RBC 0.03 H Immature Gran % 1 H Nucleated RBC % 1 H Sodium 138 Potassium 3.8 Chloride 104 Carbon Dioxide 25.7 Anion Gap 8 BUN 5 L Creatinine 0.3 L Estim Creat Clear Calc 180.7 eGFR > 60 BUN/Creatinine Ratio 17 Glucose 196 H Calculated Osmolality 277 Calcium 8.3 Corrected Calcium 8.9 Phosphorus 2.8 Magnesium 1.6 Total Bilirubin 0.6 AST 58 H ALT 64 H Alkaline Phosphatase 136 H D Total Protein 5.2 L Albumin 3.2 L Globulin 2.0 L Albumin/Globulin Ratio 1.6 ABG Interpretation ABG results: 09/11/25 14:05 ABG pH 7.42 ABG pCO2 34 ABG pO2 74 L ABG HCO3 22 ABG O2 Saturation 96 ABG Base Excess -2 Assessment & Plan Assessment: Acute blood loss anemia Upper GI bleed Grade 3 varices status post banding on 09/2025 Symptomatic normocytic anemia MAFLD Cirrhosis Hyperammonemia History of gastric ulcer Anion gap metabolic acidosis, resolved Lactic acidosis, resolved Type 2 insulin-dependent diabetes mellitus, A1c 7.2 Arthritis Hyperlipidemia Hypertension Patient is a 54-year-old female with past medical history of type 2 insulin- dependent diabetes mellitus, NAFLD, cirrhosis, GI bleed, grade 2 esophageal varices, arthritis who presented to the ED due to 2 episodes of nausea and vomiting, as well as hematemesis. Patient has been on octreotide drip and underwent endoscopy on 09/12/2025. Patient was found to have grade 3 esophageal varices on this admission which has now been banded. Patient also was noted to have erythematous mucosa in the stomach. She remains on Protonix 40 mg IV push twice daily. She also remains on octreotide drip at this time day 3 out of 5. Urine culture is negative for UTI. However, she remains on Rocephin due to decompensated cirrhosis and for SBP prophylaxis. Patient was started on carvedilol 3.125 mg p.o. twice daily due to esophageal varices. Will monitor blood pressure closely. Patient's diet has been advanced to PUD diet. Will continue with current management. Will uptitrate insulin as needed since diet has been advanced. Nutrition: Dysphagia II PUD diet DVT Prophylaxis: SCD Code Status: full code Time Spent with Patient Time: Total time spent is greater than 50% in coordination of care (as documented) at patient's floor/unit and/or counseling patient: Greater than 30 minutes Time with patient: 25 - 35 minutes Reason for Continued Stay Reason for continued stay: further monitoring Quality Measures Quality Measures VTE prophylaxis (scds, pt has bleed )
--- NOTE | 2025-09-14 19:24 | ESPR_ITS ---
Documentation for date of: 09/14/25 Subjective Subjective Interval history: Patient evaluated Hemoglobin hematocrit 7.5 and 24.2 and a platelet count of 4 85,000 Exam Vital Signs Temp Pulse Resp BP Pulse Ox O2 Del Method O2 Flow Rate 98.7 F 95 18 96/55 L 93 L Mechanical Ventilation 2 09/14/25 16:00 09/14/25 18:38 09/14/25 18:38 09/14/25 16:42 09/14/25 16:00 09/14/25 16:00 09/14/25 08:00 Objective Labs 09/14/25 05:27 09/14/25 05:27 Labs: Laboratory Results - last 24 hr 09/14/25 05:27 WBC 6.6 RBC 2.63 L Hgb 7.5 L Hct 24.2 L MCV 92 MCH 28.5 MCHC 31.0 RDW Std Deviation 59.2 H Plt Count 185 Neut % (Auto) 56 Lymph % (Auto) 31 [place] % (Auto) 10 Eos % (Auto) 1 Baso % (Auto) 0 Neut # (Auto) 3.7 Lymph # (Auto) 2.1 [place] # (Auto) 0.7 Eos # (Auto) 0.1 Baso # (Auto) 0.0 Immature Gran # (Auto) 0.09 H Absolute Nucleated RBC 0.03 H Immature Gran % 1 H Nucleated RBC % 1 H Sodium 138 Potassium 3.8 Chloride 104 Carbon Dioxide 25.7 Anion Gap 8 BUN 5 L Creatinine 0.3 L Estim Creat Clear Calc 180.7 eGFR > 60 BUN/Creatinine Ratio 17 Glucose 196 H Calculated Osmolality 277 Calcium 8.3 Corrected Calcium 8.9 Phosphorus 2.8 Magnesium 1.6 Total Bilirubin 0.6 AST 58 H ALT 64 H Alkaline Phosphatase 136 H D Total Protein 5.2 L Albumin 3.2 L Globulin 2.0 L Albumin/Globulin Ratio 1.6 Impressions Impression: Esophageal variceal bleeding status post band ligation in total 3 bands were put in Continue current management for completion of 5 days of octreotide ABG Interpretation ABG results: 09/11/25 14:05 ABG pH 7.42 ABG pCO2 34 ABG pO2 74 L ABG HCO3 22 ABG O2 Saturation 96 ABG Base Excess -2 Assessment & Plan A&P Narrative Hematemesis in the setting of SALVADOR with history of band ligation of the esophageal varices 01/18/2025 Plan Serial CBC and transfuse as the hemoglobin is very low at 6.3 and 21.8 although platelet count is reasonably good at 266 and pro time INR is 1.1 Consent obtained for fiberoptic colonoscopy with possible biopsy possible therapeutic intervention under intravenous moderate sedation scheduled for tomorrow Octreotide infusion at 50 mcg/h IV Protonix Will follow the patient Thank you very much for the opportunity to participate in the care of this patient Time Spent With Patient Time: Total time spent is greater than 50% in coordination of care (as documented) at patient's floor/unit and/or counseling patient:
[2025-09-14] MEDS: ACETAMINOPHEN 325 MG TABLET 650 MG PO (20:04)
[2025-09-14 23:43] LABS: Lactate (Lactic Acid) 1.1 mMol/L (0.4-2.0)
[2025-09-14 23:47] LABS: Hematocrit 26.1 % (36.0-46.0)
[2025-09-14] MEDS: Magnesium Sulfate 2 GM Ivpb 2 GM/50 ML BAG IV (23:47)
[2025-09-14 23:52] LABS: Hemoglobin 8.1 g/dL (12.0-16.0)
[2025-09-15] VITALS (7 sets, daily range): BP systolic 91–98; BP diastolic 55–85; PULSE 83–98; RESP 16–95; TEMP 36.7–37.2; O2SAT 94–97; BMI 29.8
[2025-09-15 06:17] LABS: Basophils # (Auto) 0.0 Thou/mm3 (0.0-0.2); Basophils % (Auto) 1 % (0-2.5); Eosinophils # (Auto) 0.1 Thou/mm3 (0.0-0.5); Eosinophils % (Auto) 2 % (0-10); Hematocrit 25.3 % (36.0-46.0); Immature Granulocytes Auto 0.06 Thou/mm3 (0.00-0.00); Lymphocytes # (Auto) 1.7 Thou/mm3 (1.0-4.8); Lymphocytes % (Auto) 30 % (10-50); Mean Corpuscular HGB Conc 30.4 g/dl (31.0-37.0); Mean Corpuscular Hemoglobin 28.5 pg (25.0-35.0); Mean Corpuscular Volume 94 fL (80-100); Monocytes # (Auto) 0.6 Thou/mm3 (0.0-0.8); Monocytes % (Auto) 10 % (0-12); Neutrophils # (Auto) 3.3 Thou/mm3 (1.8-7.7); Neutrophils % (Auto) 57 % (37-80); Nucleated Red Blood Cell # 0.03 Thou/mm3 (0.00-0.00); Nucleated Red Blood Cell % 1 /100 WBC (0); Platelet Count 174 Thou/mm3 (140-440); RDW Standard Deviation 60.4 fL (36.4-46.3); Red Blood Count 2.70 Miln/mm3 (4.00-5.20); White Blood Count 5.9 Thou/mm3 (3.6-11.0)
[2025-09-15 06:25] LABS: Hemoglobin 7.7 g/dL (12.0-16.0)
[2025-09-15 06:38] LABS: Alanine Aminotransferase 52 U/L (10-49); Albumin, Serum 3.4 gm/dL (3.5-5.0); Albumin/Globulin Ratio 1.5 (1.2-2.2); Alkaline Phosphatase 150 U/L (46-116); Anion Gap 11 (7-16); Aspartate Amino Transferase 51 U/L (0-34); BUN/Creatinine Ratio 13 Ratio (12-20); Bilirubin,Total 0.6 mg/dL (0.3-1.2); Blood Urea Nitrogen 5 mg/dL (9-23); Calcium 8.2 mg/dL (8.3-10.6); Calcium (Corrected) 8.7 mg/dL (8.5-10.1); Carbon Dioxide 25.1 mMol/L (20.0-31.0); Chloride 104 mMol/L (98-107); Creatinine (Component) 0.4 mg/dL (0.6-1.3); Estimated Creatinine Clearance 135.5 mL/min (>60); Globulin 2.2 gm/dL (2.3-3.5); Glucose 204 mg/dL (74-106); Magnesium 2.1 mg/dL (1.6-2.6); Osmolality,Calculated 282 (275-295); Phosphorous 2.7 mg/dL (2.4-5.1); Potassium 3.9 mMol/L (3.4-5.1); Sodium 140 mMol/L (136-145); Total Protein 5.6 gm/dL (5.7-8.2); eGFR > 60 See Note
--- NOTE | 2025-09-15 07:35 | ESDS_ITS ---
<Statement entered by Breanna Lee DO - 09/15/25 15:24> I, Breanna Lee DO, attest that I was physically present for the martinez portions of the service and evaluated the patient with the resident and I reviewed and discussed the case with the resident and agree with the resident's findings and plans of care as documented above Planned Discharge Date 09/15/25 DS: Providers Provider Date of admission: 09/11/25 15:03 Primary care physician: JOSE J Sandoval Admitting Provider: Marcelino Rahman MD Attending Provider on Admission: Breanna Lee DO Consults: 09/11/25 13:00 Consult to Gastroenterology Routine Comment: Consulting Provider: Christian Luna Attending Provider on DC: Breanna Lee DO Discharging Provider: Breanna Lee DO DS: Diagnosis Problem List Completed Was Problem List Reviewed/Reconciled?: Yes Hospital Course Hospital Course Hospital course: Hospital Course Ms Bello is a 54 year old woman with history of hyperlipidemia, type 2 diabetes (A1c 5.2), MASLD cirrhosis and hx of grade 2 varices status post banding in January 2025, who presented to the ED with hematemesis, who underwent EGD with GI who found grade three varices s/p banding. While inpatient she received a total of 5 days of octreotide as per GI recs and blood pressure was controlled inpatient with coreg BID. Patient stable and medically cleared for discharge Diagnoses #Upper GI Bleed 2/2 #Grade 3 varices s/p banding 09/2025 #Acute symptomatic Normocytic Anemia 2/2 #MASLD Cirrhosis #Transaminitis #hyperammonemia #hx of Grade 2 varices, s/p banding 01/2025 #hx gastric ulcer #Cystitis vs UTI suspected #Anion gap metabolic acidosis- Resolved #Insulin Depended T2DM: well controlled #Arthritis #HLD #HTN Discharge instructions -Follow up with PCP within 1 week of discharge, if you do not have a primary care physician you can come see us at the [facility] by calling [phone] -Continue rest of medications as previously prescribed -Return to the ED or call EMS if symptoms return and/or worsen Plan discussed with my attending Dr. Lee and my senior resident Dr. Osorio Gutierrez MD PGY1 Time Spent with Patient Time attestation: Total time spent providing and/or coordinating discharge services: Time spent: Greater than 30 minutes Exam Vital Signs Temp Pulse Resp BP Pulse Ox O2 Del Method O2 Flow Rate 98.8 F 98 18 98/56 L 97 Room Air 2 09/15/25 04:00 09/15/25 06:58 09/15/25 06:58 09/15/25 04:00 09/15/25 04:00 09/15/25 04:00 09/15/25 00:00 Narrative Exam GENERAL: no acute distress, AAO x3, comfortably laying in bed HEENT: Head AT/ NC. Mucous membranes moist. PERRL. NECK: Supple, no lymphadenopathy, no carotid bruits. CARDIOVASCULAR: RRR. Normal S1/S2, No m/r/g. No pitting edema of bilateral LEs. some lymphedema RESPIRATORY: CTAB. No wheezing, rhonchi, crackles. GASTROINTESTINAL: Abdomen soft, obese, non tender no palpable masses. Bowel sounds present, no rebound, no guarding MUSCULOSKELETAL:? No cyanosis or edema, no visible joint swelling. NEUROLOGICAL: CN II-XII grossly intact. No focal deficits. Sensation intact, symmetric. PSYCHIATRIC: Awake and alert, not agitated, normal mood and affect. SKIN: No obvious rashes, no jaundice, some lower extremity contusions, and shiny skin on anterior shins. with 1cm wounds. Discharge Plan Plan Patient condition on transfer: Stable Care Plan Goals: -Follow up with PCP within 1 week of discharge, if you do not have a primary care physician you can come see us at the [facility] by calling [phone] -Continue rest of medications as previously prescribed -Return to the ED or call EMS if symptoms return and/or worsen Prescriptions/Referrals Prescriptions/Med Rec: No Action (DME) Dexcom G7 Sensor Device See Rx Instructions .Route Qty: 1 6RF Rx Instructions: As directed Q10 days (DME) pen needle, diabetic [Comfort EZ Pen [place]] 31 gauge x 3/16 needle See Rx Instructions .Route Qty: 100 3RF Rx Instructions: Qday Ozempic 2 mg/dose (8 mg/3 mL) pen injector See Rx Instructions .ROUTE .COMPLEX Qty: 3 2RF Dose Instruction: INJECT 2MG SUBCUTANEOUSLY ONCE A WEEK AT 9AM Rx Instructions: INJECT 2MG SUBCUTANEOUSLY ONCE A WEEK AT 9AM insulin glargine [Lantus Solostar U-100 Insulin] 100 unit/mL (3 mL) insulin pen 30 unit subcut BID Qty: 15 6RF Jardiance 25 mg tablet 25 mg PO QAM Qty: 90 1RF rosuvastatin 20 mg tablet 20 mg PO QDAY Qty: 90 1RF ferrous sulfate 325 mg (65 mg iron) tablet,delayed release (DR/EC) 325 mg PO QDAY Qty: 30 2RF glipizide 5 mg tablet See Rx Instructions .ROUTE .COMPLEX Qty: 180 0RF Dose Instruction: Take 1 tablet by mouth twice daily Rx Instructions: Take 1 tablet by mouth twice daily pantoprazole 40 mg tablet,delayed release (DR/EC) See Rx Instructions .ROUTE .COMPLEX Qty: 30 0RF Dose Instruction: Take 1 tablet by mouth once daily Rx Instructions: Take 1 tablet by mouth once daily Referrals: Eliza ([facility]),Alissa Bolton NEUROLOGY EPILEPSY PHYSICIAN [Primary Care Provider, Family Practice] Patient/Caregiver Discharge Instructions Print Language: Micronesian Quality Discharge Quality Measures VTE prophylaxis
[2025-09-15] MEDS: INSULIN DEGLUDEC 5 UNIT/0.05 ML (PER 5 UNITS) 10 UNIT SC (08:01)
[2025-09-15] MEDS: INSULIN LISPRO (AdmeLOG) 1 UNIT/0.01 ML UNIT SC ×2 (08:01→11:50)
[2025-09-15] MEDS: cefTRIAXone/D5w 1gm IV premix 1 GM/50 ML BAG IV (08:02)
--- NOTE | 2025-09-15 10:56 | PC.NURSE ---
MD Guzman notified of discharge and follow up consult pt wanting clarification. Per MD follow discharge instructions and pt ok to go home. Per MD Luna no plan for colonoscopy.
--- NOTE | 2025-09-15 12:24 | PC.NURSE ---
MD WYMAN made aware of pt o2 sat being variable from 92% to 95 %. Per MD o2% greater than 92% ok. Pt not complaining of sob and breathing is normal. Per ok to discharge.
--- NOTE | 2025-09-15 12:38 | PC.NURSE ---
Clarified with md weston regarding octreotide drip. Per okay to go home despite not receiving x5 days of drip
--- NOTE | 2025-09-15 21:09 | PD.IMPROG ---
Documentation for date of: 09/15/25 Subjective Subjective Interval history: Late entry for the note patient evaluated Hemoglobin hematocrit 7.7 and 25.3 Discussed the case with the internal medicine team Okay to discharge patient home after 3 days of octreotide therapy Exam Vital Signs Temp Pulse Resp BP Pulse Ox O2 Del Method O2 Flow Rate 98.9 F 97 18 95/55 L 97 Room Air 2 09/15/25 12:00 09/15/25 12:00 09/15/25 12:00 09/15/25 12:00 09/15/25 12:00 09/15/25 12:00 09/15/25 00:00 Objective Labs 09/15/25 05:22 09/15/25 05:22 Labs: Laboratory Results - last 24 hr 09/14/25 09/15/25 23:30 05:22 WBC 5.9 RBC 2.70 L Hgb 8.1 L 7.7 L Hct 26.1 L 25.3 L MCV 94 MCH 28.5 MCHC 30.4 L RDW Std Deviation 60.4 H Plt Count 174 Neut % (Auto) 57 Lymph % (Auto) 30 [place] % (Auto) 10 Eos % (Auto) 2 Baso % (Auto) 1 Neut # (Auto) 3.3 Lymph # (Auto) 1.7 [place] # (Auto) 0.6 Eos # (Auto) 0.1 Baso # (Auto) 0.0 Immature Gran # (Auto) 0.06 H Absolute Nucleated RBC 0.03 H Immature Gran % 1 H Nucleated RBC % 1 H Sodium 140 Potassium 3.9 Chloride 104 Carbon Dioxide 25.1 Anion Gap 11 BUN 5 L Creatinine 0.4 L Estim Creat Clear Calc 135.5 eGFR > 60 BUN/Creatinine Ratio 13 Glucose 204 H Calculated Osmolality 282 Lactic Acid 1.1 Calcium 8.2 L Corrected Calcium 8.7 Phosphorus 2.7 Magnesium 2.1 Total Bilirubin 0.6 AST 51 H ALT 52 H Alkaline Phosphatase 150 H Total Protein 5.6 L Albumin 3.4 L Globulin 2.2 L Albumin/Globulin Ratio 1.5 Impressions Impression: Esophageal varices status post band ligation Okay to discharge patient home after 3 days of therapy to be followed by the PCP ABG Interpretation ABG results: 09/11/25 14:05 ABG pH 7.42 ABG pCO2 34 ABG pO2 74 L ABG HCO3 22 ABG O2 Saturation 96 ABG Base Excess -2 Assessment & Plan A&P Narrative Hematemesis in the setting of SALVADOR with history of band ligation of the esophageal varices 01/18/2025 Plan Serial CBC and transfuse as the hemoglobin is very low at 6.3 and 21.8 although platelet count is reasonably good at 266 and pro time INR is 1.1 Consent obtained for fiberoptic colonoscopy with possible biopsy possible therapeutic intervention under intravenous moderate sedation scheduled for tomorrow Octreotide infusion at 50 mcg/h IV Protonix Will follow the patient Thank you very much for the opportunity to participate in the care of this patient Time Spent With Patient Time: Total time spent is greater than 50% in coordination of care (as documented) at patient's floor/unit and/or counseling patient:
== END 2025-09-15 13:07 | disposition home or self-care (01) ==
LOC: SERX 14:52 → SERHOLD 15:41 → S2NX 09-12 08:14
PROVIDERS: Nurse Practitioner Family; Specialist; Student in an Organized Health Care Education/Training Program; Admitting Provider Student in an Organized Health Care Education/Training Program; Emergency Provider Emergency Medicine; PCP Nurse Practitioner Primary Care; Visit Provider Internal Medicine
PROC: (CPT 43239; principal; 2025-09-12 15:00)
DX: K74.60 Unspecified cirrhosis of liver (principal); I85.11 Secondary esophageal varices with bleeding; E78.5 Hyperlipidemia, unspecified; D62 Acute posthemorrhagic anemia; K75.81 Nonalcoholic steatohepatitis (NASH); M19.90 Unspecified osteoarthritis, unspecified site; E11.65 Type 2 diabetes mellitus with hyperglycemia; I85.00 Esophageal varices without bleeding; Z79.4 Long term (current) use of insulin; I10 Essential (primary) hypertension; K31.89 Other diseases of stomach and duodenum; K76.6 Portal hypertension; Z79.84 Long term (current) use of oral hypoglycemic drugs; Z79.899 Other long term (current) drug therapy
CPT/HCPCS: 36415; 36600; 80053; 80074; 80307; 80320; 80329; 81001; 82010; 82140; 82803; 83036; 83605; 83690; 83735; 84100; 84145; 85014; 85018; 85025; 85610; 85730; 86850; 86900; 86901; 86923; 87086; 93005; 96365; 96366; 96375; 99284; A4649; J0696; J1200; J1815; J2250; J2270; J2354; J2470; J3010; J3475; J7050; J7120; P9016; Q0162; A9270; G0480

== ENCOUNTER → 2025-09-21 | Outpatient (BNVA) | payer MEDICAID, SELFPAY | END | disposition home or self-care (01) | PROVIDERS: PCP Nurse Practitioner Primary Care; Referring Provider Nurse Practitioner Primary Care; Visit Provider Nurse Practitioner Primary Care | DX: Z09 Encounter for follow-up examination after completed treatment for conditions other than malignant neoplasm (principal); K74.69 Other cirrhosis of liver; K76.0 Fatty (change of) liver, not elsewhere classified; E11.65 Type 2 diabetes mellitus with hyperglycemia; K74.60 Unspecified cirrhosis of liver; Z91.199 Patient's noncompliance with other medical treatment and regimen due to unspecified reason; I85.11 Secondary esophageal varices with bleeding | CPT/HCPCS: 99214 ==

== ENCOUNTER 2025-09-22 13:03 | Outpatient (RCR) | payer MEDICAID, SELFPAY | END 2025-10-09 23:59 | disposition home or self-care (01) | LOC: SCTC 13:03 | PROVIDERS: PCP Nurse Practitioner Primary Care; Referring Provider Nurse Practitioner Primary Care; Visit Provider Nurse Practitioner Family | DX: K74.60 Unspecified cirrhosis of liver (principal); I85.10 Secondary esophageal varices without bleeding; D63.8 Anemia in other chronic diseases classified elsewhere; E11.9 Type 2 diabetes mellitus without complications | CPT/HCPCS: 99213; G0463 ==

== ENCOUNTER → 2025-09-22 | Outpatient (BNVA) | payer MEDICAID, SELFPAY | END | disposition home or self-care (01) | PROVIDERS: PCP Nurse Practitioner Family; Referring Provider Nurse Practitioner Family; Visit Provider Nurse Practitioner Family | DX: E11.65 Type 2 diabetes mellitus with hyperglycemia (principal); Z79.4 Long term (current) use of insulin; Z71.9 Counseling, unspecified | CPT/HCPCS: 82948; 99213 ==

== ENCOUNTER → 2025-09-30 | Outpatient (BNVA) | payer MEDICAID, SELFPAY | END | disposition home or self-care (01) | PROVIDERS: PCP Nurse Practitioner Primary Care; Referring Provider Nurse Practitioner Primary Care; Visit Provider Nurse Practitioner Primary Care | DX: Z09 Encounter for follow-up examination after completed treatment for conditions other than malignant neoplasm (principal); K74.69 Other cirrhosis of liver; K76.0 Fatty (change of) liver, not elsewhere classified; K92.2 Gastrointestinal hemorrhage, unspecified | CPT/HCPCS: 83036; 85018; 99215 ==

== ENCOUNTER → 2025-10-18 | Outpatient (BNVA) | payer MEDICAID, SELFPAY | END | disposition home or self-care (01) | PROVIDERS: PCP Nurse Practitioner Primary Care; Referring Provider Nurse Practitioner Primary Care; Visit Provider Nurse Practitioner Primary Care | DX: K74.69 Other cirrhosis of liver (principal); E11.65 Type 2 diabetes mellitus with hyperglycemia; K76.0 Fatty (change of) liver, not elsewhere classified; I85.10 Secondary esophageal varices without bleeding; Z91.199 Patient's noncompliance with other medical treatment and regimen due to unspecified reason | CPT/HCPCS: 99215 ==

== ENCOUNTER → 2025-11-01 | Outpatient (BNVA) | payer MEDICAID, SELFPAY | END | disposition home or self-care (01) | PROVIDERS: PCP Nurse Practitioner Primary Care; Referring Provider Nurse Practitioner Primary Care; Visit Provider Nurse Practitioner Primary Care | DX: D64.9 Anemia, unspecified (principal); K74.69 Other cirrhosis of liver; K76.0 Fatty (change of) liver, not elsewhere classified; E11.65 Type 2 diabetes mellitus with hyperglycemia; Z91.199 Patient's noncompliance with other medical treatment and regimen due to unspecified reason | CPT/HCPCS: 99212; G0463 ==